=== PATIENT | male | born 1970 | race Caucasian/White ===

== ENCOUNTER 2020-08-10 09:13 | Day surgery (SDC) | payer OTHER, SELFPAY ==
[2020-08-04 15:44] VITALS: BMI 42.3
--- NOTE | 2020-08-09 12:19 | P.CONAN_ITS ---
Documented by User: Megha Avery 08/09/20 12:20 HPI - Anesthesia Eval Consult details Narrative: 49yo M for Colonoscopy [facility] Past Medical History Medical History Degenerative arthritis Elevated cholesterol Heartburn History of general anesthesia HTN (hypertension) Obesity Surgical History Surgical History History of hip surgery Social History Social History Alcohol intake: current Alcohol intake frequency: a few times a month Alcohol type: beer Smoking Status: Never smoker Use of substances other than those prescribed or required for medical reasons: No Advance Directives: No Advance Directives Information Provided: No Advance Directives on File: No Meds Allergies Allergy/AdvReac Type Severity Reaction Status Date / Time No Known Allergies Allergy Verified 08/04/20 15:43 Home Medications Medication Instructions Recorded Confirmed Type metoprolol succinate 50 mg PO BID 08/04/20 08/10/20 History simvastatin 40 mg PO BEDTIME 08/04/20 08/04/20 History Exam Exam Date and Time: August 09, 2020 1219 Height,Weight and Vital Signs: Height 5 ft 10 in Weight 133.81 kg Assessment and Plan Assessment Anesthesia Assessment: Chart Reviewed Documented by User: Jocelyn Pitt 08/10/20 09:39 [facility] Past Medical History Medical History Degenerative arthritis Elevated cholesterol Heartburn History of general anesthesia HTN (hypertension) Obesity Surgical History Surgical History History of hip surgery Social History Social History Alcohol intake: current Alcohol intake frequency: a few times a month Alcohol type: beer Smoking Status: Never smoker Use of substances other than those prescribed or required for medical reasons: No Advance Directives: No Advance Directives Information Provided: No Advance Directives on File: No Meds Allergies Allergy/AdvReac Type Severity Reaction Status Date / Time No Known Allergies Allergy Verified 08/04/20 15:43 Home Medications Medication Instructions Recorded Confirmed Type metoprolol succinate 50 mg PO BID 08/04/20 08/10/20 History simvastatin 40 mg PO BEDTIME 08/04/20 08/04/20 History Exam Airway Mallampati Class: III TM Dist: >3cm Neck ROM: Full
[2020-08-10 09:36] VITALS: BP 150/88; PULSE 58; RESP 16; TEMP 36.9; O2SAT 97
[2020-08-10] MEDS: Lactated Ringers 1,000 ML 100 ML IVCONT (09:47)
--- NOTE | 2020-08-10 10:11 | MHC.SHP ---
Pre-Procedural Eval Section A The patient is an INPATIENT: No Changes since office visit: No Cold of Flu in the past 2 weeks, No New Medical Problems, No Changes in Medication and No Patient answered all questions The History & Physical has been completed within 30 days and I have reviewed it.: Yes Section B Chief Complaint: screening Allergies: Allergies Allergy/AdvReac Type Severity Reaction Status Date / Time No Known Allergies Allergy Verified 08/04/20 15:43 Plan I have reviewed the history and physical and performed a pertinent physical examination on my patient. No changes have occurred unless specified.
[2020-08-10 10:40] VITALS: BP 111/63; PULSE 58; RESP 16; TEMP 36.3; O2SAT 97
--- NOTE | 2020-08-10 10:42 | PM.OP ---
Brief Operative Note Date of Service: 08/10/20 Pre-op diagnosis: screening Post-op diagnosis: same (diverticulosis) Procedure: colonoscopy Surgeon: Garland Ruvalcaba Anesthesia: MAC Estimated blood loss (mL): 0 Pathology: none sent Condition: stable Disposition: PACU
[2020-08-10 10:55] VITALS: BP 112/65; PULSE 68; RESP 17; TEMP 36.2; O2SAT 96
--- NOTE | 2020-08-10 11:13 | OP_ITS ---
SURGEON: Garland Ruvalcaba MD PREOPERATIVE DIAGNOSIS: POSTOPERATIVE DIAGNOSIS: PROCEDURE PERFORMED: Colonoscopy to the terminal ileum. ESTIMATED BLOOD LOSS: COMPLICATIONS: ANESTHESIA: ASSISTANTS: SPECIMENS: INDICATION: Colon cancer screening. MEDICATIONS: Monitored anesthesia care. DESCRIPTION OF PROCEDURE: History and physical was performed. The risks and benefits of the procedure were explained to the patient. Informed consent was obtained. The patient was placed in the left lateral decubitus position. A digital rectal exam was performed and was found to be normal. The Olympus pediatric video colonoscope was introduced into the rectum and advanced to the cecum without difficulty. The cecum was identified by transillumination, palpation, and identification of ileocecal valve. Examination was performed. The scope was removed. He tolerated the procedure well and was returned to recovery area in stable condition. FINDINGS: The terminal ileum was normal. The visualized colonic mucosa was within normal limits without evidence of masses or ulcers. No polyps were identified. The quality of prep was good. There was mild to moderate sigmoid diverticulosis. Retroflexed examination was remarkable for small internal hemorrhoids. IMPRESSION: 1. Normal colonoscopy. 2. Diverticulosis. RECOMMENDATION: 1. Follow up as needed. 2. Repeat colonoscopy is recommended in 10 years for average risk individuals. MD LOGAN Childers/ERASMO / [phone]
== END 2020-08-10 11:05 | disposition home or self-care (01) ==
PROVIDERS: PCP Internal Medicine Medical Oncology; Visit Provider Internal Medicine Gastroenterology
PROC: 0DJD8ZZ Inspection of Lower Intestinal Tract, Via Natural or Artificial Opening Endoscopic (ICD-10-PCS; CPT 45378; principal; 2020-08-10 10:20)
DX: Z12.11 Encounter for screening for malignant neoplasm of colon (principal); K57.30 Diverticulosis of large intestine without perforation or abscess without bleeding; K64.8 Other hemorrhoids; I10 Essential (primary) hypertension; Z79.899 Other long term (current) drug therapy
CPT/HCPCS: 45378

== ENCOUNTER 2021-06-30 09:14 | Outpatient (REF) | payer OTHER, SELFPAY ==
[2021-06-30 09:31] LABS: MANUAL DIFF FLAG NO
[2021-06-30 10:22] LABS: Basophils Percent Auto 0.6 % (0-2); Eosinophils Absolute Auto 0.1 X10*3/uL (0.0-0.4); Eosinophils Percent Auto 2.3 % (0-4); Hematocrit 45.8 % (42.0-52.0); Hemoglobin 15.2 g/dl (14.0-18.0); Lymphocytes Absolute Auto 1.9 X10*3/uL (1.2-4.9); Lymphocytes Percent Auto 40.8 % (20-40); Mean Corpuscular HGB Conc 33.2 g/dl (31.0-36.0); Mean Corpuscular Hemoglobin 30.4 pg (27.0-33.0); Mean Corpuscular Volume 91.6 fL (80.0-98.0); Monocytes Absolute Auto 0.5 X10*3/uL (0.1-1.2); Monocytes Percent Auto 10.3 % (2-11); Neutrophils Absolute Auto 2.2 x10*3/uL (2.0-8.3); Platelet Count 234 X10*3/uL (160-400); Red Cell Distribution Width 12.2 % (11.0-16.0); White Blood Count 4.8 X10*3/uL (4.8-10.8)
[2021-06-30 10:50] LABS: Alanine Aminotransferase 27 U/L (0-40); Albumin Level 4.3 g/dL (3.5-5.0); Alkaline Phosphatase 61 U/L (39-117); Anion Gap 13 (12-20); Aspartate Amino Transferase 16 U/L (5-37); Bilirubin Total 0.6 mg/dL (0.0-1.0); Blood Urea Nitrogen 13 mg/dL (9-16); Calcium 9.3 mg/dL (8.4-10.2); Carbon Dioxide 24 mmol/L (22-29); Chloride 105 mmol/L (96-108); Cholesterol 223 mg/dL; Estimated Glomerular Filt Rate > 60; Glucose Fasting 120 mg/dL (60-99); HDL Cholesterol 36 mg/dL; LDL Cholesterol Calculated 141 mg/dl; Potassium 4.2 mmol/L (3.3-5.1); Sodium 138 mmol/L (135-145); Total Protein 7.3 g/dL (6.5-8.0); Triglycerides 231 mg/dL
[2021-06-30 11:13] LABS: Prostate Specific Antigen 0.31 ng/mL (<0.05-4.0)
== END 2021-06-30 09:15 | disposition home or self-care (01) ==
LOC: HO.LAB 09:14
PROVIDERS: PCP Internal Medicine Medical Oncology; Visit Provider Internal Medicine Medical Oncology
DX: Z12.5 Encounter for screening for malignant neoplasm of prostate (principal); E78.5 Hyperlipidemia, unspecified; E66.01 Morbid (severe) obesity due to excess calories
CPT/HCPCS: 36415; 80053; 80061; 84153; 85025

== ENCOUNTER 2022-09-20 08:50 | Outpatient (REF) | payer OTHER, SELFPAY ==
[2022-09-20 11:01] LABS: MANUAL DIFF FLAG NO
[2022-09-20 11:19] LABS: Basophils Percent Auto 0.4 % (0-2); Eosinophils Absolute Auto 0.1 X10*3/uL (0.0-0.4); Eosinophils Percent Auto 2.4 % (0-4); Hematocrit 46.3 % (42.0-52.0); Imm Gran Abs Auto 0.01 X10*3/uL (0.00-0.03); Imm Gran Pct Auto 0.2 % (0.0-0.4); Lymphocytes Absolute Auto 2.1 X10*3/uL (1.2-4.9); Lymphocytes Percent Auto 41.8 % (20-40); Mean Corpuscular HGB Conc 32.4 g/dl (31.0-36.0); Mean Corpuscular Hemoglobin 30.4 pg (27.0-33.0); Mean Corpuscular Volume 93.7 fL (80.0-98.0); Mean Platelet Volume 10.7 fL (9.4-12.4); Monocytes Absolute Auto 0.5 X10*3/uL (0.1-1.2); Monocytes Percent Auto 10.2 % (2-11); Neutrophils Absolute Auto 2.3 x10*3/uL (2.0-8.3); Platelet Count 214 X10*3/uL (160-400); Red Blood Count 4.94 X10*6/uL (4.60-5.80); Red Cell Distribution Width 12.6 % (11.0-16.0)
[2022-09-20 11:38] LABS: Alanine Aminotransferase 27 U/L (0-40); Albumin Level 4.1 g/dL (3.5-5.0); Alkaline Phosphatase 58 U/L (39-117); Anion Gap 12 (12-20); Aspartate Amino Transferase 18 U/L (5-37); Bilirubin Total 0.6 mg/dL (0.0-1.0); Blood Urea Nitrogen 10 mg/dL (9-16); Calcium 9.2 mg/dL (8.4-10.2); Carbon Dioxide 28 mmol/L (22-29); Chloride 107 mmol/L (96-108); Cholesterol 213 mg/dL; Estimated Glomerular Filt Rate > 60; Glucose Fasting 111 mg/dL (60-99); HDL Cholesterol 39 mg/dL; LDL Cholesterol Calculated 139 mg/dl; Sodium 142 mmol/L (135-145); Total Protein 6.8 g/dL (6.5-8.0); Triglycerides 178 mg/dL
[2022-09-20 12:12] LABS: Prostate Specific Antigen 0.34 ng/mL (<0.05-4.0); Vitamin D 25-OH Total 20.8 ng/mL (>30)
== END 2022-09-20 08:51 | disposition home or self-care (01) ==
LOC: HO.10HDL 08:50
PROVIDERS: Visit Provider Internal Medicine Medical Oncology
DX: Z12.5 Encounter for screening for malignant neoplasm of prostate (principal); E78.5 Hyperlipidemia, unspecified; E66.01 Morbid (severe) obesity due to excess calories; N40.0 Benign prostatic hyperplasia without lower urinary tract symptoms; M85.80 Other specified disorders of bone density and structure, unspecified site
CPT/HCPCS: 36415; 80053; 80061; 82306; 84153; 85025

== ENCOUNTER 2023-01-16 12:11 | Emergency (ER) | payer OTHER, SELFPAY ==
--- NOTE | ~2023-01-16 | XR_ITS ---
EXAMINATION: XR HAND, LEFT CLINICAL INFORMATION: trauma COMPARISON: None available. TECHNIQUE: PA, lateral, and oblique views of the left hand. FINDINGS: The bones and soft tissues are normal. No fracture. Alignment is anatomic. Joint spaces are maintained. No erosions or soft tissue calcifications. XR/XR hand LT min 3V IMPRESSION: Normal left hand.
--- NOTE | ~2023-01-16 | XR_ITS ---
EXAMINATION: XR RIBS, RIGHT CLINICAL INFORMATION: Trauma COMPARISON: CTA of the chest 2014 TECHNIQUE: 3 views of the right ribs and one view of the chest were obtained. FINDINGS: Lungs are clear. No consolidation, pneumothorax, or pleural effusion. The cardiomediastinal silhouette and pulmonary vasculature are normal. Degenerative changes of the spine. Question old fracture of the right anterior 10th rib. No acute fracture. XR/XR ribs RT min 3V w CXR1V IMPRESSION: No evidence for acute disease in the chest. No acute rib fracture.
[2023-01-16 12:12] VITALS: BP 199/89; PULSE 92; RESP 18; TEMP 35.8; O2SAT 97; BMI 42.3
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
[2023-01-16 12:57] VITALS: BP 157/89
== END 2023-01-16 14:16 | disposition home or self-care (01) ==
PROVIDERS: Emergency Provider Emergency Medicine; PCP Internal Medicine Medical Oncology
DX: S69.92XA Unspecified injury of left wrist, hand and finger(s), initial encounter (principal); R10.11 Right upper quadrant pain; R07.89 Other chest pain; M79.642 Pain in left hand; X58.XXXA Exposure to other specified factors, initial encounter; Y93.9 Activity, unspecified; Y92.9 Unspecified place or not applicable; Y99.0 Civilian activity done for income or pay; Z79.899 Other long term (current) drug therapy
CPT/HCPCS: 71101; 73130; 99283; 99284

== ENCOUNTER → 2023-01-17 10:01 | Outpatient (BNVA) | payer OTHER, SELFPAY | PROVIDERS: PCP Internal Medicine Medical Oncology; Visit Provider Physician Assistant | DX: S46.911A Strain of unspecified muscle, fascia and tendon at shoulder and upper arm level, right arm, initial encounter (principal); X50.1XXA Overexertion from prolonged static or awkward postures, initial encounter; R20.2 Paresthesia of skin | CPT/HCPCS: 99213 ==

== ENCOUNTER → 2023-01-24 11:06 | Outpatient (BNVA) | payer OTHER, SELFPAY | PROVIDERS: PCP Internal Medicine Medical Oncology; Visit Provider Physician Assistant | DX: S46.911A Strain of unspecified muscle, fascia and tendon at shoulder and upper arm level, right arm, initial encounter (principal); X50.1XXA Overexertion from prolonged static or awkward postures, initial encounter; R20.2 Paresthesia of skin | CPT/HCPCS: 99213 ==

== ENCOUNTER 2024-04-14 10:21 | Outpatient (AMB) | payer OTHER, SELFPAY ==
[2024-04-14 10:22] VITALS: BP 152/78; PULSE 63; O2SAT 98; BMI 44.8
--- NOTE | 2024-04-14 10:22 | MHC.OFFVIS ---
Vital Signs 04/14/24 10:22 Height 5 ft 10 in Weight 311 lb 15.265 oz BMI 44.8 BP 152/78 H Blood Pressure Location Rt brachial Position Sitting Pulse 63 Pulse Source Pulse Oximeter Pulse Oximetry (%) 98 Oxygen Delivery Method Room Air Intake Visit Reasons: sleep apnea Allergies No Known Allergies Allergy (Verified 04/14/24 10:25) HPI HPI sleep apnea: Details: Phong is a pleasant 53 year old male, never smoker, with underlying HTN and HLD. He was referred by PCP for pulmonary evaluation for possible KOBE. He reports loud snoring, witnessed apneas, significant daytime fatigue, and nonrestorative sleep. He denies prior sleep study and is interested in having this performed. He denies any h/o asthma. He reports with mother, smoker, with COPD. He denies any occupational exposures. [facility] Medical History Degenerative arthritis Elevated cholesterol Heartburn History of general anesthesia HTN (hypertension) Obesity Surgical History History of hip surgery Social History (Updated 04/14/24 @ 10:25 by Jeannine Resendez [facility]) Alcohol intake: current Alcohol intake frequency: a few times a month Alcohol type: beer Patient Tobacco Use Status: Never used Tobacco Review of Systems Const Denies chills, Denies excessive sweating, Denies fever(s), Denies headache(s) and Denies night sweats Eyes Denies dry eyes, Denies irritation and Denies itchy eyes ENT Reports Normal hearing present, Denies headache(s), Denies nasal congestion, Denies nasal discharge, Denies post nasal drip and Denies sore throat Card Denies chest pain, Denies chest pain at rest, Denies chest pain with activity, Denies claudication, Denies leg edema, Reports dyspnea, Denies dyspnea on exertion, Denies orthopnea and Reports paroxysmal nocturnal dyspnea Resp Denies chest congestion, Denies cough, Denies excessive phlegm production, Denies pain on inspiration, Denies pain with cough, Reports dyspnea, Denies dyspnea on exertion, Denies stridor and Denies wheezing Musc Denies myalgias Neuro Reports Normal hearing present and Denies headache(s) Endo Denies excessive sweating Shamir/Lymph Denies lymphadenopathy Aller/Immun Denies itchy eyes, Denies seasonal rhinorrhea and Denies wheezing Physical Exam Vital Signs: Last Vital Signs Pulse 63 04/14/24 10:22 BP 152/78 H 04/14/24 10:22 Pulse Ox 98 04/14/24 10:22 Oxygen Delivery Method Room Air 04/14/24 10:22 BMI result Body Mass Index 44.8 Const General: cooperative, healthy appearing, comfortable, no acute distress, well developed and alert Nutritional Appearance: obese Orientation/consciousness: patient oriented x3 Limitations: no limitations HEENT Head: Yes normal to inspection, Yes normocephalic and Yes atraumatic Ears: hearing grossly normal bilaterally and external ears normal Eyes General: appearance normal, both eyes and all related structures Eyelids: Yes eyelids normal Sclerae: sclerae normal EOM: EOMs intact bilaterally Neck Neck: Yes normal visual inspection and Yes no lymphadenopathy Lymphatic: no lymphadenopathy noted Chest Chest palpation & inspection: normal inspection of the chest Resp Effort & Inspection: normal respiratory effort, able to speak in complete sentences, no audible wheezes, no cough, no stridor, not tachypneic, no tripod positioning and no use of accessory muscles Auscultation: clear to auscultation bilaterally Cardio Jugular venous distension: no JVD Rate: regular rate Rhythm: regular rhythm Skin Other: warm, dry General skin exam: no rashes or lesions noted Neuro General: patient oriented x3 Cranial nerves: Yes Normal hearing present Cognition (Neuro): normal cognition Gait exam (Neuro): Normal gait present Extrem General: Yes normal to inspection, Yes capillary refill normal, Yes no clubbing, cyanosis or edema and Yes no pedal edema Psych Appearance: grossly normal and well kempt Speech and movement: Normal speech and movement present and Clear speech present Affect: normal affect Attitude: cooperative Thought process: Normal thought process present Thought content: Normal thought content present Insight: Good insight present (Psych) Judgement: Good judgement present (Psych) Assessment & Plan Assessment & Plan (1) Paroxysmal nocturnal dyspnea: Code(s): R06.00 - Dyspnea, unspecified Category: Medical (2) Witnessed episode of apnea: Code(s): R06.81 - Apnea, not elsewhere classified Category: Medical Plan Phong presents with symptoms suggestive of KOBE. Will send for home sleep study. All questions were answered and patient is in agreement of plan. Will follow up to review results. Orders: Orders RT home sleep study Today R06.00 - Dyspnea, unspecified, R06.81 - Apnea, not elsewhere classified Coding Level of Care Code New Pt Level 3 (19550) Diagnoses Paroxysmal nocturnal dyspnea R06.00 Witnessed episode of apnea R06.81
== END 2024-04-14 11:32 | disposition home or self-care (01) ==
PROVIDERS: PCP Internal Medicine Medical Oncology; Visit Provider Nurse Practitioner Family
DX: R06.00 Dyspnea, unspecified (principal); R06.81 Apnea, not elsewhere classified
CPT/HCPCS: 99203

== ENCOUNTER → 2024-04-14 10:21 | Outpatient (BNVA) | payer OTHER, SELFPAY | PROVIDERS: PCP Internal Medicine Medical Oncology; Visit Provider Nurse Practitioner Family ==

== ENCOUNTER 2024-04-25 08:18 | Outpatient (REF) | payer OTHER, SELFPAY ==
[2024-04-25 08:31] LABS: MANUAL DIFF FLAG NO
[2024-04-25 09:04] LABS: Basophils Percent Auto 0.4 % (0-2); Eosinophils Absolute Auto 0.1 X10*3/uL (0.0-0.4); Eosinophils Percent Auto 2.9 % (0-4); Hematocrit 43.6 % (42.0-52.0); Hemoglobin 14.6 g/dl (14.0-18.0); Imm Gran Abs Auto 0.01 X10*3/uL (0.00-0.03); Imm Gran Pct Auto 0.2 % (0.0-0.4); Lymphocytes Absolute Auto 1.6 X10*3/uL (1.2-4.9); Lymphocytes Percent Auto 32.6 % (20-40); Mean Corpuscular HGB Conc 33.5 g/dl (31.0-36.0); Mean Corpuscular Hemoglobin 30.8 pg (27.0-33.0); Mean Platelet Volume 9.9 fL (9.4-12.4); Monocytes Absolute Auto 0.4 X10*3/uL (0.1-1.2); Neutrophils Absolute Auto 2.7 x10*3/uL (2.0-8.3); Neutrophils Percent Auto 55.9 % (45-73); Platelet Count 193 X10*3/uL (160-400); Red Blood Count 4.74 X10*6/uL (4.60-5.80); Red Cell Distribution Width 12.6 % (11.0-16.0); White Blood Count 4.9 X10*3/uL (4.8-10.8)
[2024-04-25 09:33] LABS: Alanine Aminotransferase 27 U/L (0-40); Albumin Level 4.2 g/dL (3.5-5.0); Alkaline Phosphatase 61 U/L (39-117); Anion Gap 11 (12-20); Aspartate Amino Transferase 14 U/L (5-37); Bilirubin Total 0.4 mg/dL (0.0-1.0); Blood Urea Nitrogen 10 mg/dL (9-16); Calcium 9.5 mg/dL (8.4-10.2); Carbon Dioxide 29 mmol/L (22-29); Chloride 105 mmol/L (96-108); Cholesterol 214 mg/dL (<200); Estimated Glomerular Filt Rate > 60; Glucose Fasting 129 mg/dL (60-99); HDL Cholesterol 44 mg/dL (>40); LDL Cholesterol Calculated 132 mg/dL (<100); Potassium 4.3 mmol/L (3.3-5.1); Sodium 141 mmol/L (135-145); Total Protein 7.4 g/dL (6.5-8.0); Triglycerides 190 mg/dL (<150)
[2024-04-30 07:08] LABS: Testosterone, Total 330 ng/dL (250-1100)
== END 2024-04-25 08:19 | disposition home or self-care (01) ==
LOC: HO.LAB 08:18
PROVIDERS: PCP Internal Medicine Medical Oncology; Visit Provider Internal Medicine Medical Oncology
DX: E66.01 Morbid (severe) obesity due to excess calories (principal); I10 Essential (primary) hypertension; E11.9 Type 2 diabetes mellitus without complications; E29.1 Testicular hypofunction
CPT/HCPCS: 36415; 80053; 80061; 84403; 85025

== ENCOUNTER → 2024-05-21 08:50 | Outpatient (REF) | payer OTHER, SELFPAY | LOC: HO.SL 08:50 | PROVIDERS: PCP Internal Medicine Medical Oncology; Visit Provider Nurse Practitioner Family | DX: G47.33 Obstructive sleep apnea (adult) (pediatric) (principal); R06.00 Dyspnea, unspecified | CPT/HCPCS: 95806 ==

== ENCOUNTER → 2024-05-21 09:07 | Outpatient (BNV) | payer OTHER, SELFPAY | PROVIDERS: PCP Internal Medicine Medical Oncology; Visit Provider Internal Medicine | DX: G47.33 Obstructive sleep apnea (adult) (pediatric) (principal) | CPT/HCPCS: 95806 ==

== ENCOUNTER 2024-06-16 15:00 | Outpatient (AMB) | payer OTHER, SELFPAY ==
--- NOTE | 2024-06-16 13:17 | A.OFFVIS_ITS ---
Vital Signs 06/16/24 15:04 Height 5 ft 10 in Weight 315 lb 4.176 oz BMI 45.2 BP 158/80 H Blood Pressure Location Lt brachial Position Sitting Pulse 87 Pulse Source Pulse Oximeter Pulse Oximetry (%) 97 Oxygen Delivery Method Room Air Intake Visit Reasons: sleep apnea\ Sleep study follow up Allergies No Known Allergies Allergy (Verified 06/16/24 15:06) HPI HPI sleep apnea\ Sleep study follow up: Details: Phong is a pleasant 53 year old male, never smoker, with underlying HTN and HLD. He was referred by PCP for pulmonary evaluation for possible KOBE. He reports loud snoring, witnessed apneas, significant daytime fatigue, and nonrestorative sleep. Today he presents to review home sleep study results. He currently denies any respiratory symptoms however did have pneumonia a few weeks prior treated with zpak, with resolving symptoms. [facility] Medical History Degenerative arthritis Elevated cholesterol Heartburn History of general anesthesia HTN (hypertension) Obesity Surgical History History of hip surgery Social History Alcohol intake: current Alcohol intake frequency: a few times a month Alcohol type: beer Patient Tobacco Use Status: Never used Tobacco Review of Systems Const Denies chills, Denies excessive sweating, Denies fever(s), Denies headache(s) and Denies night sweats Eyes Denies dry eyes, Denies irritation and Denies itchy eyes ENT Reports Normal hearing present, Denies headache(s), Denies nasal congestion, Denies nasal discharge, Denies post nasal drip and Denies sore throat Card Denies chest pain, Denies chest pain at rest, Denies chest pain with activity, Denies claudication, Denies leg edema, Reports dyspnea, Denies dyspnea on exertion, Denies orthopnea and Reports paroxysmal nocturnal dyspnea Resp Denies chest congestion, Denies excessive phlegm production, Denies pain on inspiration, Denies pain with cough, Reports dyspnea, Denies dyspnea on exertion, Denies stridor and Denies wheezing Musc Denies myalgias Neuro Reports Normal hearing present and Denies headache(s) Endo Denies excessive sweating Shamir/Lymph Denies lymphadenopathy Aller/Immun Denies itchy eyes, Denies seasonal rhinorrhea and Denies wheezing Physical Exam Vital Signs: Last Vital Signs Pulse 87 06/16/24 15:04 BP 158/80 H 06/16/24 15:04 Pulse Ox 97 06/16/24 15:04 Oxygen Delivery Method Room Air 06/16/24 15:04 BMI result Body Mass Index 45.2 Const General: cooperative, healthy appearing, comfortable, no acute distress, well developed and alert Nutritional Appearance: obese Orientation/consciousness: patient oriented x3 Limitations: no limitations HEENT Head: Yes normal to inspection, Yes normocephalic and Yes atraumatic Ears: hearing grossly normal bilaterally and external ears normal Eyes General: appearance normal, both eyes and all related structures Eyelids: Yes eyelids normal Sclerae: sclerae normal EOM: EOMs intact bilaterally Neck Neck: Yes normal visual inspection and Yes no lymphadenopathy Lymphatic: no lymphadenopathy noted Chest Chest palpation & inspection: normal inspection of the chest Resp Effort & Inspection: normal respiratory effort, able to speak in complete sentences, no audible wheezes, no cough, no stridor, not tachypneic, no tripod positioning and no use of accessory muscles Auscultation: clear to auscultation bilaterally Cardio Jugular venous distension: no JVD Rate: regular rate Rhythm: regular rhythm Skin Other: warm, dry General skin exam: no rashes or lesions noted Neuro General: patient oriented x3 Cranial nerves: Yes Normal hearing present Cognition (Neuro): normal cognition Gait exam (Neuro): Normal gait present Extrem General: Yes normal to inspection, Yes capillary refill normal, Yes no clubbing, cyanosis or edema and Yes no pedal edema Psych Appearance: grossly normal and well kempt Speech and movement: Normal speech and movement present and Clear speech present Affect: normal affect Attitude: cooperative Thought process: Normal thought process present Thought content: Normal thought content present Insight: Good insight present (Psych) Judgement: Good judgement present (Psych) Assessment & Plan Assessment & Plan (1) Severe obstructive sleep apnea: Code(s): G47.33 - Obstructive sleep apnea (adult) (pediatric) Category: Medical (2) Nocturnal hypoxemia: Code(s): G47.34 - Idiopathic sleep related nonobstructive alveolar hypoventilation Category: Medical Plan Reviewed home sleep study results which revealed severe KOBE, AHI 67 with significant nocturnal hypoxemia, lowest 63%, average 89% and <88% for 140 minutes. Given severity will send for in lab titration study to ensure optimal pressures. All questions were answered and patient is in agreement of plan. Will follow up to review results. Orders: Orders RT PSG in-lab sleep titration Today G47.33 - Obstructive sleep apnea (adult) (pediatric), G47.34 - Idiopathic sleep related nonobstructive alveolar hypoventilation Coding Level of Care Code Est Pt Level 3 (50057) Diagnoses Severe obstructive sleep apnea G47.33 Nocturnal hypoxemia G47.34
[2024-06-16 15:04] VITALS: BP 158/80; PULSE 87; O2SAT 97; BMI 45.2
== END 2024-06-16 15:35 | disposition home or self-care (01) ==
PROVIDERS: PCP Internal Medicine Medical Oncology; Visit Provider Nurse Practitioner Family
DX: G47.33 Obstructive sleep apnea (adult) (pediatric) (principal); G47.34 Idiopathic sleep related nonobstructive alveolar hypoventilation
CPT/HCPCS: 99213

== ENCOUNTER → 2024-06-16 15:00 | Outpatient (BNVA) | payer OTHER, SELFPAY | PROVIDERS: PCP Internal Medicine Medical Oncology; Visit Provider Nurse Practitioner Family ==

== ENCOUNTER → 2024-08-18 20:30 | Outpatient (REF) | payer OTHER, SELFPAY | LOC: HO.SL 20:30 | PROVIDERS: PCP Internal Medicine Medical Oncology; Visit Provider Nurse Practitioner Family | DX: G47.34 Idiopathic sleep related nonobstructive alveolar hypoventilation (principal); G47.33 Obstructive sleep apnea (adult) (pediatric) | CPT/HCPCS: 95811 ==

== ENCOUNTER → 2024-08-18 22:51 | Outpatient (BNV) | payer OTHER, SELFPAY | PROVIDERS: PCP Internal Medicine Medical Oncology; Visit Provider Psychiatry & Neurology Neurology | DX: G47.33 Obstructive sleep apnea (adult) (pediatric) (principal) | CPT/HCPCS: 95811 ==

== ENCOUNTER 2024-09-22 15:24 | Outpatient (AMB) | payer OTHER, SELFPAY ==
--- NOTE | 2024-09-21 20:05 | A.OFFVIS_ITS ---
Vital Signs 09/22/24 15:32 Height 5 ft 10 in Weight 310 lb 13.628 oz BMI 44.6 Intake Visit Reasons: sleep apnea\ Sleep study follow up Student Development Advisor Required: No Hydraulic Chair Assembler: Hydraulic Chair Assembler offered & declined Accompanied by: Self / Same As Patient Allergies No Known Allergies Allergy (Verified 09/22/24 15:35) Medication List - Last Reconciled 09/22/24 by Darcie Parr LPN metoprolol succinate ER 50 mg PO BID simvastatin 40 mg PO BEDTIME HPI HPI sleep apnea\ Sleep study follow up: Details: Phong is a pleasant 53 year old male, never smoker, with underlying HTN and HLD. He was referred by PCP for pulmonary evaluation for possible KOBE, reporting loud snoring, witnessed apneas, significant daytime fatigue, and nonrestorative sleep. Prior home sleep study revealed severe KOBE, AHI 67 with significant nocturnal hypoxemia, lowest 63%, average 89% and <88% for 140 minutes. Today he presents to review in lab titration study. He denies any visits to urgent care or hospitalizations related to respiratory distress since the last visit. [facility] Medical History Degenerative arthritis Elevated cholesterol Heartburn History of general anesthesia HTN (hypertension) Obesity Surgical History History of hip surgery Social History Alcohol intake: current Alcohol intake frequency: a few times a month Alcohol type: beer Patient Tobacco Use Status: Never used Tobacco Review of Systems Const Denies chills, Denies excessive sweating, Denies fever(s), Denies headache(s) and Denies night sweats Eyes Denies dry eyes, Denies irritation and Denies itchy eyes ENT Reports Normal hearing present, Denies headache(s), Denies nasal congestion, Denies nasal discharge, Denies post nasal drip and Denies sore throat Card Denies chest pain, Denies chest pain at rest, Denies chest pain with activity, Denies claudication, Denies leg edema, Reports dyspnea, Denies dyspnea on exertion, Denies orthopnea and Reports paroxysmal nocturnal dyspnea Resp Denies excessive phlegm production, Denies pain on inspiration, Denies pain with cough, Reports dyspnea, Denies dyspnea on exertion, Denies stridor and Denies wheezing Musc Denies myalgias Neuro Reports Normal hearing present and Denies headache(s) Endo Denies excessive sweating Shamir/Lymph Denies lymphadenopathy Aller/Immun Denies itchy eyes, Denies seasonal rhinorrhea and Denies wheezing Physical Exam Const General: cooperative, healthy appearing, comfortable, no acute distress, well developed and alert Nutritional Appearance: obese Orientation/consciousness: patient oriented x3 Limitations: no limitations HEENT Head: Yes normal to inspection, Yes normocephalic and Yes atraumatic Ears: hearing grossly normal bilaterally and external ears normal Eyes General: appearance normal, both eyes and all related structures Eyelids: Yes eyelids normal Sclerae: sclerae normal EOM: EOMs intact bilaterally Neck Neck: Yes normal visual inspection and Yes no lymphadenopathy Lymphatic: no lymphadenopathy noted Chest Chest palpation & inspection: normal inspection of the chest Resp Effort & Inspection: normal respiratory effort, able to speak in complete sentences, no audible wheezes, no cough, no stridor, not tachypneic, no tripod positioning and no use of accessory muscles Auscultation: clear to auscultation bilaterally Cardio Jugular venous distension: no JVD Rate: regular rate Rhythm: regular rhythm Skin Other: warm, dry General skin exam: no rashes or lesions noted Neuro General: patient oriented x3 Cranial nerves: Yes Normal hearing present Cognition (Neuro): normal cognition Gait exam (Neuro): Normal gait present Extrem General: Yes normal to inspection, Yes capillary refill normal, Yes no clubbing, cyanosis or edema and Yes no pedal edema Psych Appearance: grossly normal and well kempt Speech and movement: Normal speech and movement present and Clear speech present Affect: normal affect Attitude: cooperative Thought process: Normal thought process present Thought content: Normal thought content present Insight: Good insight present (Psych) Judgement: Good judgement present (Psych) Assessment & Plan Assessment & Plan (1) Severe obstructive sleep apnea: Code(s): G47.33 - Obstructive sleep apnea (adult) (pediatric) Category: Medical (2) Nocturnal hypoxemia: Code(s): G47.34 - Idiopathic sleep related nonobstructive alveolar hypoventilation Category: Medical Plan Reviewed recommendations from in lab titration study, which noted there were no residual obstructive events and hypoxia was resolved using CPAP therapy. Since patient is quite symptomatic, will start CPAP therapy. Will send in prescription for CPAP mode and pressure settings of 15 cm with close monitoring for compliance and benefits. Sleep hygiene education reviewed. He is aware if there are any issues with the mask or CPAP machine, to call the DME company or call the office. Once established with CPAP therapy, will send for overnight oximetry to ensure resolution of nocturnal hypoxemia. All questions were answered and patient is in agreement of plan. Will follow up in 10-12 weeks. Coding Level of Care Code Est Pt Level 4 (53660) Diagnoses Severe obstructive sleep apnea G47.33 Nocturnal hypoxemia G47.34
[2024-09-22 15:32] VITALS: BMI 44.6
--- OUTSIDE RECORDS SUMMARY | 2024-09-22 17:40 | XMS_ITS ---
Author Organization Andrew Connelly III, MD Address [address] [place] [address] Care Team Providers Care Flute Polisher Name Role Phone Andrew Connelly Primary Care Provider Allergies Allergen (clinical drug ingredient) Drug/Non Drug Allergy documented on EMR Reaction Allergy Type Onset Date Status No Known Drug Allergy Unknown Drug Allergy Active REASON FOR VISIT Viral syndrome, Acute diarrhea, Fever, Nausea and vomiting Medications Medication SIG (Take, Route, Frequency, Duration) Notes Start Date End Date Status Simvastatin 40 MG Oral Ac tive Metoprolol Tartrate 50 mg TAKE 1 TABLET TWICE A DAY Active Zepbound 2.5 MG/0.5ML 0.5 mL Subcutaneou s 2.5mg once a week for 4 weeks 03/24/2024 Active Social History Tobacco Use: Social History Observation Description Date Details (start date - stop date) Never Smoker NA - NA Sex Assigned At : Social History Observation Description Sex Assigned At Male Tobacco Use/Smoking Question Answer Notes Patient is a nonsmoker Additional Findings: Tobacco Non-User Aggressive non-smoker Vital Signs Temperature 101.0 degrees Fahrenheit 025 Height 70 in 09/05/2024 Weight 315 lbs 09/05/2024 BMI 45.19 kg/m2 09/05/2024 Encounters Encounter Location Date Provider Diagnosis Andrew Connelly III, MD [address] [place] [address] [place] [address] 09/05/2024 Andrew Connelly Hyperlipidemia, unspecified hyperlipidemia type E78.5 ; Essential hypertension I10 ; History of umbilical hernia Z87.19 ; Morbid obesity E66.01 ; BPH (benign prostatic hyperplasia) N40.0 ; Type 2 diabetes mellitus without complication, without long-term current use of insulin E11.9 ; Sleep apnea, unspecified sleep apnea type G47.30 and Viral syndrome B34.9 Assessments Encounter Date Diagnosis (ICD Code) Assessment Notes T reatment Notes Treatment Clinical Notes 09/05/2024 Hyperlipidemia, unspecified hyperlipidemia type (ICD-10 - E78.5) He was instructed to resume his simvastatin to be taken with evening meal. 09/05/2024 Essential hypertension (ICD-10 - I10) His blood pressure today has beenstable at the upper limit of normal. I recommend aggressive weight reduction and aggressive sodium restriction. No change in his regimen was made.He was given an appointment to come to the office to measure his pressure in the near future. 09/05/2024 History of umbilical hernia (ICD-10 - Z87.19) The scar is well-healed in the hernia has been repaired. 09/05/2024 Morbid obesity (ICD-10 - E66.01) He has gained 7 pounds since his last visit. He has been unable to acquire a weight loss program. We discussed diet and nutrition today. Continue his efforts to achieve a GLP1 medication. 09/05/2024 BPH (benign prostatic hyperplasia) (ICD-10 - N40.0) He rises from sleep once or twice a night. We have discussed several modifications in his lifestyle we could make to reduce this. 09/05/2024 Type 2 diabetes mellitus without complication, without long-term current use of insulin (ICD-10 - E11.9) Comprehensive blood work with her hemoglobin A1c has been ordered. No change in his regimen was made today. 09/05/2024 Sleep apnea, unspecified sleep apnea type (ICD-10 - G47.30) He continues to use his CPAP machine with good effect. 09/05/2024 Viral syndrome (ICD-10 - B34.9) This is clearly a contagious viral illness. It has features of gastroenteritis. His nausea has resolved. I recommended that he use a cough suppressant with dextromethorphan as well as Imodium for the diarrhea. He will hydrate aggressively. He will report by telephone every 48 hours. Plan Of Treatment Medication Medication Name Sig Start Date Stop Date Notes Simvastatin 40 MG Oral Metoprolol Tartrate 50 mg TAKE 1 TABLET TWICE A DAY Zepbound 2.5 MG/0.5ML 0.5 mL Subcutaneou s 2.5mg once a week for 4 weeks 03/24/2024 Next Appt Details Follow Up: Sunday morning, Donya cota: To check on the patient's condition Provider Name:Andrew Connelly, 03/24/2025 02:00:00 PM, [address] [place] [address] [address], [address], [place], [address], Progress Notes * JOSE FRANCISCOJOHN WallaceDOB:1970 ( 53 yo M)Acc No.[id number]:09/05/2024 Patient:?JOHN KNIGHT Provider:?Andrew Connelly MD :1970???Age:53 Y???Sex:Male Luke e:09/05/2024 Address: [address], [place], [id number] Subjective: * Chief Complaints: * ???Viral syndromeAcute diarr heaFeverNausea and vomiting * HPI: ???:?Telehealth?Location of provider rendering services:?{...} [address] [facility] [address] ?Location of patient:?address listed in demographics for today's visit ?Patient identification confirmed using:?Name, ?Telehealth method:?Telephone only. Patient not visible to care provider. ?Consent:?Patient verbally consented to treatment, Patient verbally consented to billing insurance company, Patient informed of any privacy concerns related to method of visit ?Total time spent with patient (mins)?15 ?The patient, a 53-year-old male, reported feeling unwell a couple of nights ago. He experienced vomiting and severe diarrhea, which has persisted for the last two days. He has been trying to stay hydrated by drinking water and Gatorade, but he reports that he cannot retain anything and it passes through his system quickly. He has been able to eat a little, including soup, bananas, and crackers, but his appetite is significantly reduced. He also reported having a fever for a couple of days, which reached a high of 101 degrees Fahrenheit. The patient has not been vomiting recently, but his diarrhea continues. * ROS:?General/Constitutional:?pain?only normal aches and pains.?Chills?denies.?Fatigue?admits.?Admits?Fever,?denies.?ENT:?Decreased hearing?denies.?Respiratory:?Cough?non-productive.?Cardiovascular:?Chest pain with exertion?denies.?Dyspnea on exertion?denies.?Shortness of breath?denies.?Gastrointestinal:?Constipation?denies.?Decreased appetite?that is not associated with weight loss.?Diarrhea?that is frequent.?Heartburn?denies.?Nausea?frequent.?Rectal bleeding?denies.?Vomiting?denies.?Hematology:?bruising?denies.?petechiae?denies.?Swollen glands?none have been noted.?Genitourinary:?Frequent urination?once a night.?Musculoskeletal:?Muscle aches?denies.?Painful joints?denies.?Sciatica?denies.?Weakness?that is generalized.?Skin:?Itching?denies.?Rash?denies.?Skin lesion(s)?denies.?Neurologic:?Difficulty speaking?denies.?Dizziness?denies.?Headache?denies.?Low back pain?denies.?Psychiatric:?Depressed mood?denies.? * Medical History:? * Surgical History:?umbilical repair 2008aseptic necrosis of right and left hip 09/2000left hip replacement 07/10/2008right hip replacement 07/14/2008Colonoscopy, [facility], Dr. Ruvalcaba 07/2020No history * Hospitalization/Major Diagno stic Procedure:?multiple orthopedic procedures No history * Family History:?Father: dece ased 77 yrs, diagnosed with DM, HTN.?Mother: 71 yrs, breast cancer.?1 brother(s) , 1 sister(s) . 1 son(s) - healthy. .? His mother has heart disease and a history of bypass surgery. He also diaz has a history of prostate cancer. His mother has history of breast cancer. His brother has hypertension, hyperlipidemia. * Social History:?Tobacco Use:?Tobacco Use/Smoking?Patient is a?nonsmoker ?Additional Findings: Tobacco Non-User?Aggressive non-smoker ???He was born in [place]. 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 He is to for He has a son John. He works 60 hours a week. * Medications:?TakingZepbound 2.5 MG/0.5ML Solution Auto-injector 0.5 mL Subcutaneous 2.5mg once a week for 4 weeks Metoprolol Tartrate 50 mg Tablet TAKE 1 TABLET TWICE A DAY Simvastatin 40 MG Tablet Oral Medication List reviewed and reconciled with the patientTaking Zepbound 2.5 MG/0.5ML Solution Auto-injector 0.5 mL Subcutaneous 2.5mg once a week for 4 weeks Taking Metoprolol Tartrate 50 mg Tablet TAKE 1 TABLET TWICE A DAY Taking Simvastatin 40 MG Tablet Oral Medication List reviewed and reconciled with the patient * Allergies:?No Known Drug All ergyno[Allergies Verified] Objective: * Vitals:?Ht: 70, Wt: 315, BMI :45.19, Temp:101.0, Wt-k.88. Assessment: * Assessment: 1.?Hyperlipidemia, unspecifi ed hyperlipidemia type - E78.5 (Primary)???Notes :He was instructed to resume his simvastatin to be taken with evening meal.???2.?Essential hypertension - I10???Notes :His blood pressure today has beenstable at the upper limit of normal. I recommend aggressive weight reduction and aggressive sodium restriction. No change in his regimen was made.He was given an appointment to come to the office to measure his pressure in the near future.???3.?History of umbilical hernia - Z87.19???Notes :The scar is well-healed in the hernia has been repaired.???4.?Morbid obesity - E66.01???Notes :He has gained 7 pounds since his last visit. He has been unable to acquire a weight loss program. We discussed diet and nutrition today. Continue his efforts to achieve a GLP1 medication.???5.?BPH (benign prostatic hyperplasia) - N40.0???Notes :He rises from sleep once or twice a night. We have discussed several modifications in his lifestyle we could make to reduce this.???6.?Type 2 diabetes mellitus without complication, without long-term current use of insulin - E11.9???Notes :Comprehensive blood work with her hemoglobin A1c has been ordered.? No change in his regimen was made today.???7.?Sleep apnea, unspecified sleep apnea type - G47.30???Notes :He continues to use his CPAP machine with good effect.???8.?Viral syndrome - B34.9???Notes :This is clearly a contagious viral illness.? It has features of gastroenteritis.? His nausea has resolved.? I recommended that he use a cough suppressant with dextromethorphan as well as Imodium for the diarrhea.? He will hydrate aggressively.? He will report by telephone every 48 hours.??? Plan: * Treatment: 2.?Others? Continue Zepbound Solution Auto-injector, 2.5 MG/0.5ML, 0.5 mL, Subcutaneous, 2.5mg once a week for 4 weeks;?Continue Metoprolol Tartrate Tablet, 50 mg, TAKE 1 TABLET TWICE A DAY.?? * Procedure Codes:? * Preventive Medicine:? ??Counseling:?Care goal follow-up plan:?Counseling for abnormal BMI given?Yes ?Above Normal BMI Follow-up?Dietary management education, guidance, and counseling, Dietary needs education, Exercise promotion: strength training, Exercise promotion: stretching, Feeding regime, Giving encouragement to exercise, Lifestyle education regarding diet, Nutrition / feeding management, Nutrition therapy, Prescribed activity/exercise education, Prescribed diet education, Prescribed dietary intake, Special diet education, Weight monitoring , Intervention, Order not done: Medical or Other reason not done ??DM Care Plan:?Patient Lifestyle Goals?Patient wants to be able to manage diabetes without too much effort.?Treatment Goals?Blood Sugars less than < 115, HbA1C < 7.0.?Barriers?no barriers.? * Follow Up:?Sunday (R beata: To check on the patient's condition) * Images: * Sign off status: Completed true * Provider:?Andrew Connelly MD Date:?01/2025 Generated for Lizzy ye/Daisy/Lul on:?09/22/2024 05:39 PM EST History and Physical Notes * HPI (History of Present Illness) Category Sub-Category Detail Notes Telehealth [facility] {...} [address] [place] [id number] Location of patient:: address listed in demographics for today's visit Patient identification confirmed using:: Name, Telehealth method:: Telephone only. Sharon ent not visible to care provider. Consent:: Patient verbally c onsented to treatment, Patient verbally consented to billing insurance company, Patient informed of any privacy concerns related to method of visit Total time spent with patient (mins): 15
--- OUTSIDE RECORDS SUMMARY | 2024-09-22 17:40 | XMS_ITS | Clinical Summary ---
Author Organization [facility] Address [address] [place] [address] Care Team Providers Care Hairspring Ii Inspector Name Role Phone Unavailable Primary Care Provider Unavailabl e Source Comments PLEASE NOTE, if this patient is a minor, it may be UNLAWFUL to discuss sensitive information that is contained in these records (such as FAMILY PLANNING, MENTAL HEALTH or SUBSTANCE ABUSE) with the minor patient's parent or other person without the patient's specific authorization.[facility] Immunizations Name Administration Dates Next Due Moderna COVID-19 Vaccine, re d cap blue label, 12+ Primary Series 12/01/2020,11/03/2020 Social History Tobacco Use Types Packs/Day Years Used Date Smoking Tobacco: Never Assessed Social Connections Answer Date Recorded Social Connections and Isolation 0 11/03/2020 Financial Resource Strain Answer Date R ecorded Financial Resource Strain 0 2020 Stress Answer Date Recorded Stress 0 11/03/2020 Physical Activity Answer Date Recorded Physical Activity 0 11/03/2020 Food Insecurity Answer Date Recorded Food 0 11/03/2020 Transportation Needs Answer Date Record ed Transportation 0 11/03/2020 Housing Stability Answer Date Recorded Housing 0 11/03/2020 Safety and Environment Answer Date Jignesh rded Safety 0 11/03/2020 Utilities Answer Date Recorded Utilities 0 11/03/2020 Employment Answer Date Recorded Employment 0 11/03/2020 Sex and Gender Information Value Date Recorded Sex Assigned at Not on file Legal Sex Male 6:35 AM PDT Gender Identity Not on file Sexual Orientation Not on file Plan of Treatment Health Maintenance Due Date Last Done Comments Diabetes Screening 1970 Hepatitis C Screening 1970 Lipid Screening 1970 Tobacco Screening 1970 HIV Screening 1984 Annual Preventive Care Visit 11/15/1987 Hypertension Screening (#1) 11/15/1987 Imm-DTaP/Tdap/Td (1 - Tdap) 1988 Imm-Hepatitis B (1 of 3 - 19 + 3-dose series) 1988 CT Colonography 2014 Colonoscopy 2014 Colorectal Cancer Screening 2014 FIT/gFOBT 2014 Fecal DNA 2014 Flexible Sigmoidoscopy 2014 Imm-Zoster, Recombinant (2 of 2) 06/15/2020 04/20/20 20 Ieq-NWAYR-19 (2023- season) 2024 021, 11/03/2020 Imm-Influenza (#1) 2024 04/20/2020 Alcohol and Drug Screen 07/30/2024 Depression Annual Screen 07/30/2024 Insurance [employer] ([facility]) Member Subscriber Plan / Payer (Ef fective 2020-Present) Name:Phong Felton Relation to Subscriber:Self Name:Phong Felton Payer ID:[id number] Type:Indemnity Address: [address] [place] [address]
--- OUTSIDE RECORDS SUMMARY | 2024-09-22 17:40 | XMS_ITS ---
Author Organization Andrew Connelly III, MD Address [address] [place] [address] [place] [address] Care Team Providers Care Security Rover Name Role Phone Andrew Connelly Primary Care Provider REASON FOR VISIT Follow up Social History Sex Assigned At : Social History Observation Description Sex Assigned At Male Encounters Encounter Location Date Provider Diagnosis Andrew Connelly III, MD [address] [place] [address] [place] [address] 08/25/2024 Andrew Connelly Plan Of Treatment Next Appt Details Provider Name:Andrew Connelly, 03/24/2025 02:00:00 PM, [address] [place] [address] [place], [address], Progress Notes * JOHN KNIGHTDOB:1970 ( 53 yo M)Acc No.[id number]:08/25/2024 Progress Notes Patient:?JOHN KNIGHT Provider:?Andrew Connelly MD :1970???Age:53 Y???Sex:Male Luke e:08/25/2024 Address:[address], [id number] Subjective: * Chief Complaints: * ???1. Follow up. * Medical History:? Objective: * Vitals:? Assessment: Plan: * Treatment: * Images: * The named appointment provid er may or may not be the originator of this progress note, and it is not deemed complete until electronically signed by the appointment provider. Sign off status: Pending * Provider:?Andrew Connelly MD Date:?07/31 Generated for Lizzy ye/Daisy/Lul on:?09/22/2024 05:40 PM EST
--- OUTSIDE RECORDS SUMMARY | 2024-09-22 17:40 | XMS_ITS | Clinical Summary ---
Author Organization [facility] Address [address] [place] [address] Care Team Providers Care Radiology Specialist Name Role Phone Unavailable Primary Care Provider Unavailabl e Social History Tobacco Use Types Packs/Day Years Used Date Smoking Tobacco: Never Assessed Sex and Gender Information Value Date Recorded Sex Assigned at Not on file Legal Sex Male 6:26 PM EDT Gender Identity Not on file Sexual Orientation Not on file Plan of Treatment Health Maintenance Due Date Last Done Comments Hepatitis C Screening 1970 DTaP/Tdap/Td (1 - Tdap) 11/15/1987 Hep B (1 of 3 - 19+ 3-dose series) 1988 Pneumococcal 50+ years (1 of 1 - PCV) 11/15/2019 Zoster (Shingrix) (1 of 2) 11/15/2019 COVID-19 Vaccine ( - 2023-2 5 season) 2024 Influenza (#1) 2024 HPV Vaccine Aged Out No longer eligi ble based on patient's age to complete this topic Hep A Aged Out No longer eligi ble based on patient's age to complete this topic Hib Aged Out No longer eligi ble based on patient's age to complete this topic Meningococcal ACWY Aged Out No longer eligible based on patient's age to complete this topic
--- OUTSIDE RECORDS SUMMARY | 2024-09-22 17:40 | XMS_ITS | Patient Health Record ---
Author Organization [facility] Address [address] [address] [place] [address] Care Team Providers Care Congregational Care Pastor Name Role Phone Andrew Connelly MD Primary Care Provider UnavailBg Prado Unavailable [phone] Allergies No Known Allergies Reason For Referral No Information Medications Medication SIG (Take, Route, Frequency, Duration) Notes Start Date End Date Status Neurontin 300 MG 1 capsule Orally Onc e a day at night for 90 days 05/13/2021 Active Simvastatin 40 MG 1 tablet in the evening Orally Once a day for 30 day(s) Active Gabapentin 300 MG 1 CAPSULE ONCE A DAY AT NIGHT ORALLY 90 DAYS for 90 Not-Taking Metoprolol Tartrate 50 MG 1 tablet with food Orally Twice a day for 30 day(s) Active Amitriptyline HCl 25 MG 1 tablet at bedt adelina Orally Once a day for 90 days 04/01/2021 Active Social History Tobacco Use: Social History Observation Description Date Details (start date - stop date) Never Smoker NA - NA Tobacco Use/Smoking Question Answer Notes Are you a: nonsmoker Additional Findings: Tobacco Non-User Current no n-smoker Alcohol Screen Question Answer Notes Did you have a drink contain ing alcohol in the past year? Yes How often did you have a dri nk containing alcohol in the past year? Monthly or less (1 point) Points 1 Interpretation Negative Tobacco use other than smoking: Question Answer Notes Are you an other tobacco user? 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) Active confirmed Problem 780666070 Interdigital neuroma of right foot (G57.81) Active confirmed Plan Of Treatment Pending Test Test Name Order Date X ray : Foot, left 3V 09/03/2020 X ray : Foot, right 3V 09/03/2020 Insurance Providers Payer Name Payer Address Payer Phone Subscriber Number Group Number Insured Name Patient Relationship to Insured Coverage Start Date Coverage End Date Amber SALMA [id number] [id number] [phone] [id number] Phong Felton Self - patient is the insured Medical (General) History Medical History History ICD Code Arthritis Chicken pox High blood pressure Joint implants/screws Transfusions Surgical History Surgery Date(Month/Year) Bilateral hip resurfacing 07/10/2008
--- OUTSIDE RECORDS SUMMARY | 2024-09-22 17:40 | XMS_ITS ---
Author Organization Andrew Connelly III, MD Address [address] [place] [address] [place] [address] Care Team Providers Care Grease Renderer Name Role Phone Andrew Connelly Primary Care Provider [phone] REASON FOR VISIT Follow up Social History Sex Assigned At : Social History Observation Description Sex Assigned At Male Encounters Encounter Location Date Provider Diagnosis Andrew Connelly III, MD [address] [place] [address] [place] [id number] 09/11/2024 Andrew Connelly Plan Of Treatment Next Appt Details Provider Name:Andrew Connelly, 03/24/2025 02:00:00 PM, [address] [place] [address] [place], [address], Progress Notes * JOHN KNIGHTDOB:1970 ( 53 yo M)Acc No.[id number]:09/11/2024 Progress Notes Patient:?JOHN KNIGHT Provider:?Andrew Connelly MD :1970???Age:53 Y???Sex:Male Luke e:09/11/2024 Address:[address] [id number] Subjective: * Chief Complaints: * ???1. Follow up. * Medical History:? Objective: * Vitals:? Assessment: Plan: * Treatment: * Images: * The named appointment provid er may or may not be the originator of this progress note, and it is not deemed complete until electronically signed by the appointment provider. Sign off status: Pending * Provider:?Andrew Connelly MD Date:?08/30 Generated for Lizzy ye/Daisy/Lul on:?09/22/2024 05:39 PM EST
--- OUTSIDE RECORDS SUMMARY | 2024-09-22 17:40 | XMS_ITS | Patient Health Record ---
Author Organization [facility] Address [address] [place] [address] Care Team Providers Care Patrol Officer Name Role Phone Andrew Connelly MD Primary Care Provider Unavailab lili Ruvalcaba Jr Garland Unavailable [phone] REASON FOR REFERRAL No Information MEDICATIONS Medication SIG (Take, Route, Frequency, Duration) Notes Start Date End Date Status MiraLax (colon prep) 8.3 ounce ((238) grams mixed with Gatorade or Crystal Light orally begin at 5:00 p.m. the day before the procedure for 1 day 07/16/2020 Active Simvastatin 40 MG TK 1 T PO QD IN THE PAR[place] Oral for 90 Active Metoprolol Tartrate 50 MG TK 1 T PO BID WF Oral for 90 Active IMMUNIZATIONS Vaccine Route Administration Date Status Comme nts Influenza Unknown 03/30/2020 Administered SOCIAL HISTORY Tobacco Use: Social History Observation Description Date Details (start date - stop date) Never Smoker NA - NA Sex Assigned At : Social History Observation Description Sex Assigned At Unknown Tobacco Use/Smoking Question Answer Notes Patient is a nonsmoker Alcohol Screen Question Answer Notes Did you have a drink contain ing alcohol in the past year? Yes How often did you have a dri nk containing alcohol in the past year? 2 to 4 times a month (2 points) How many drinks did you have on a typical day when you were drinking in the past year? 1 or 2 drinks (0 point) Points 2 Interpretation Negative PROBLEMS Problem Type ICD Code Onset Dates Problem Status W/U Status Risk SNOMED Code Notes Problem Colon cancer screening (Z12.11) Active confirmed 495351254 Problem Encounter for other preprocedural examination (Z01.818) Active confirmed 593812784 PLAN OF TREATMENT Future Test Test Name Order Date COLONOSCOPY 07/16/2020 Insurance Providers Payer Name Payer Address Payer Phone Subscriber Number Group Number Insured Name Patient Relationship to Insured Coverage Start Date Coverage End Date [facility] [address] [place], [place] [phone] [id number] JOHN KNIGHT Self - patient is the insured MEDICAL (GENERAL) HISTORY Medical History History ICD Code hypertension elevated cholesterol Surgical History Surgery Date(Month/Year) bilateral hip resurfacing 2006 Hospitalization History Reason Date(Month/Year)
--- OUTSIDE RECORDS SUMMARY | 2024-09-22 17:40 | XMS_ITS | Patient Health Record ---
Author Organization Andrew Connelly III, MD Address [address] [place] [address] Care Team Providers Care Authorization Manager Name Role Phone Andrew Connelly Primary Care Provider Allergies Allergen (clinical drug ingredient) Drug/Non Drug Allergy documented on EMR Reaction Allergy Type Onset Date Status No Known Drug Allergy Unknown Drug Allergy Active Results Component Value Reference Range Notes Lipid Panel Reviewed date:07/01/2024 09:46:43 AM Interpretation: Performing Lab:[address] [address] Notes/Report: Triglycerides 190 <150 mg/dL Desirable Triglyceride: less than 150 mg/dL Borderline High Triglyceride 150-199 mg/dL High Triglyceride: 200-499 mg/dL Very High Triglyceride: greater than or equal to 5OO mg/dL Cholesterol 214 <200 mg/dL Desirable Cholesterol: less than 200 mg/dL Borderline High Cholesterol: 200-239 mg/dL High Cholesterol: greater than 239 mg/dL LDL Cholesterol Calculated 132 <100 mg/dL Desirable LDL: less than 100 mg/dL Near Optimal/Above Optimal LDL: 110-129 mg/dL Borderline High LDL: 130-159 mg/dL High LDL: 160-189 mg/dL Very High LDL: greater than or equal to 190 mg/dL HDL Cholesterol 44 >40 mg/dL Desirable HDL: greater than 40 mg/dL Note: This HDL assay may give artificially low results in patients with liver disease. Testosterone, Total Reviewed date:07/01/2024 09:46:43 AM Interpretation: Performing Lab:[facility], [address] [place] [id number] Notes/Report: Testosterone, Total [phone] ng/dL For additional information, please refer to [email or web address] (This link is being provided for informational/ educational purposes only.) This test was developed and its analytical performance characteristics have been determined by [employer] [place], [place]. It has not been cleared or approved by the U.S. Food and Drug Administration. This assay has been validated pursuant to the CLIA regulations and is used for clinical purposes. THIS TEST WAS PERFORMED AT: [facility] [address] [place] [address] LUCA BRUNER MD,PHD Complete Blood Count Auto Di ff Reviewed date:07/01/2024 09:46:43 AM Interpretation: Performing Lab:[facility], [address] [place] [phone] Notes/Report: White Blood Count 4.9 4.8-10.8 X10*3/uL Red Blood Count 4.74 4.60-5.80 X10*6/uL Hemoglobin 14.6 14.0-18.0 g/dl Hematocrit 43.6 42.0-52.0 % Mean Corpuscular Volume 92.0 80.0-98.0 fL Mean Corpuscular Hemoglobin 30.8 27.0-33.0 pg Mean Corpuscular HGB Conc 33.5 31.0-36.0 g/dl Red Cell Distribution Width 12.6 11.0-16.0 % Platelet Count 193 160-400 X10*3/uL Mean Platelet Volume 9.9 9.4-12.4 fL Neutrophils Percent Auto 55.9 45-73 % Imm Gran Pct Auto 0.2 0.0-0.4 % Lymphocytes Percent Auto 32.6 20-40 % Monocytes Percent Auto 8.0 2-11 % Eosinophils Percent Auto 2.9 0-4 % Basophils Percent Auto 0.4 0-2 % NRBC Pct Auto 0.0 0.0-0.2 /100WBC Neutrophils Absolute Auto 2.7 2.0-8.3 x10*3/u L Imm Gran Abs Auto 0.01 0.00-0.03 X10*3/uL Lymphocytes Absolute Auto 1.6 1.2-4.9 X10*3/u L Monocytes Absolute Auto 0.4 0.1-1.2 X10*3/uL Eosinophils Absolute Auto 0.1 0.0-0.4 X10*3/u L Basophils Absolute Auto 0.0 0.0-0.2 X10*3/uL NRBC Abs Auto 0.000 0.0-0.012 X10*3/uL Comprehensive Reading. Panel Fa st Reviewed date:07/01/2024 09:46:43 AM Interpretation: Performing Lab:[facility], [address] [facility], [place] [address] Notes/Report: Sodium 141 135-145 mmol/L Potassium 4.3 3.3-5.1 mmol/L Chloride 105 96-108 mmol/L Carbon Dioxide 29 22-29 mmol/L Anion Gap 11 12-20 Blood Urea Nitrogen 10 9-16 mg/dL Creatinine 0.82 0.5-1.4 mg/dL Estimated Glomerular Filt Rate > 60 NOTE: For -Polish individuals, multiply the result by 1.210. Chronic Kidney Disease: Estimated GFR < 60 mL/min/1.73m2 Severe Kidney Disease: Estimated GFR < 15 mL/min/1.73m2 Glucose Fasting 129 60-99 mg/dL A fasting glucose of 126 mg/dl or greater on more than one occasion is considered diagnostic of diabetes. Calcium 9.5 8.4-10.2 mg/dL Bilirubin Total 0.4 0.0-1.0 mg/dL Aspartate Amino Transferase 14 5-37 U/L Alanine Aminotransferase 27 0-40 U/L Total Protein 7.4 6.5-8.0 g/dL Albumin Level 4.2 3.5-5.0 g/dL Alkaline Phosphatase 61 39-117 U/L Reason For Referral Reason Evaluate and Treat N eeds Sleep Study Questioning Sleep Apnea Diagnosis 1 Sleep apnea, unspeci fied sleep apnea type (G47.30) Referral Organization Andrew Connelly III, MD Referring Provider First Name Andrew Referring Provider Last Name Connelly Referring Provider Speciality Internal M edicine Referred Provider [facility] er, Pulmonology Referred Provider Specialty Pulmonary Di seases General Notes Yael Marshall 2023 09:38:45 AM EDT > Referral faxed with progress note, Yael Marshall 03/27/2024 09:21:42 AM EDT > Pulmonary office faxed over letter stating they tried to contact patient 3 times, , Yael Marshall 03/27/2024 02:33:55 PM EDT > Patient is scheduled to see Anaya 04/14/24 @ 10:30am Referral Priority Routine Referral Appointment Date 04/14/2024 Medications Medication SIG (Take, Route, Frequency, Duration) Notes Start Date End Date Status Simvastatin 40 MG Oral Ac tive Metoprolol Tartrate 50 mg TAKE 1 TABLET TWICE A DAY Active Zepbound 2.5 MG/0.5ML 0.5 mL Subcutaneou s 2.5mg once a week for 4 weeks 03/24/2024 Active Immunizations Vaccine Route Administration Date Status Comme nts Influenza no Preserv 3 and > Unknown 04/20/2020 Adminis tered COVID- 19 Vaccine Unknown 11/03/2020 Administered SHINGRIX Unknown 04/20/2020 Administered Influenza, quad Unknown 04/12/2021 Administered SHINGRIX Unknown 04/12/2021 Administered COVID- 19 Vaccine Unknown 12/01/2020 Administered Influenza no Preserv 3 and > Unknown 04/22/2022 Adminis tered Social History Tobacco Use: Social History Observation Description Date Details (start date - stop date) Never Smoker NA - NA Sex Assigned At : Social History Observation Description Sex Assigned At Male Tobacco Use/Smoking Question Answer Notes Patient is a nonsmoker Additional Findings: Tobacco Non-User Aggressive non-smoker Alcohol Screen Question Answer Notes Did you [...] year? 1 or 2 drinks (0 point) How often did you have 6 or more drinks on one occasion in the past year? 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 Surgical scar is healing. He is able to ambulate without difficulty. 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 The surgical scar is well-healed and ambulates without difficulty. Problem Benign prostatic hyperplasia (458705438) BPH (benign prostatic hyperplasia) (N40.0) Active confirmed He rises from sleep once or twice a night. We have discussed several modifications in his lifestyle we could make to reduce this. Problem 99294906 Essential hypertension (I10) Active confirmed His blood pressure today has beenstable at the upper limit of normal. I recommend aggressive weight reduction and aggressive sodium restriction. No change in his regimen was made.He was given an appointment to come to the office to measure his pressure in the near future. Problem Sleep apnea (48243984) Sleep apnea, unspecified sleep apnea type (G47.30) Active confirmed He continues to use his CPAP machine with good effect. Problem [id number] Carpal tunnel syndrome of left wrist (G56.02) Active confirmed He has undergone surgery for carpal tunnel syndrome with excellent results. Wound is healing will return to work. Problem Hyperlipidaemia (37184947) Hyperlipidemia, unspecified hyperlipidemia type (E78.5) Active confirmed He was instructed to resume his simvastatin to be taken with evening meal. Problem 578841634 History of umbilical hernia (Z87.19) Active confirmed The scar is well-healed in the hernia has been repaired. Problem 275929234 Morbid obesity (E66.01) Active confirmed He has gained 7 pounds since his last visit. He has been unable to acquire a weight loss program. We discussed diet and nutrition today. Continue his efforts to achieve a GLP1 medication. Problem [id number] Type 2 diabetes mellitus without complication, without long-term current use of insulin (E11.9) Active confirmed Comprehensiv e blood work with her hemoglobin A1c has been ordered. No change in his regimen was made today. Problem COVID-19 (987509779) Covid-19 (U07.1) Active confirmed He is recovered and mainly quarantined now. Problem 62250636 Hypogonadism male (E29.1) Active confirmed Vital Signs Heart Rate 67 /min 07/01/2024 Temperature 101.0 degrees Fahrenheit 09/05/2024 Blood pressure diastolic 80 mm Hg 07/01/2024 Height 70 in 09/05/2024 Blood pressure systolic 130 mm Hg 07/01/2024 Weight 315 lbs 09/05/2024 BMI 45.19 kg/m2 09/05/2024 Encounters Encounter Location Date Provider Diagnosis Andrew Connelly III, MD [address] [place] [address] [place] [phone] 10/19/2023 Andrew Connelly Essential hypertensi on I10 ; Hyperlipidemia, unspecified hyperlipidemia type E78.5 ; History of umbilical hernia Z87.19 ; Idiopathic aseptic necrosis of right femur M87.051 ; Idiopathic aseptic necrosis of left femur M87.052 ; Carpal tunnel syndrome of left wrist G56.02 ; BPH (benign prostatic hyperplasia) N40.0 and Morbid obesity E66.01 Andrew Connelly III, MD [address] [place] [address] [place] [address] 11/19/2023 Andrew Connelly Hyperlipidemia, unspecified hyperlipidemia type E78.5 ; Morbid obesity E66.01 ; Idiopathic aseptic necrosis of right femur M87.051 ; Idiopathic aseptic necrosis of left femur M87.052 ; Essential hypertension I10 ; BPH (benign prostatic hyperplasia) N40.0 and Type 2 diabetes mellitus without complication, without long-term current use of insulin E11.9 Andrew Connelly III, MD [address] [place] [address] [place] [address] 03/21/2024 Andrew Connelly Morbid obesity E66.0 1 ; Hyperlipidemia, unspecified hyperlipidemia type E78.5 ; BPH (benign prostatic hyperplasia) N40.0 and Shortness of breath R06.02 Andrew Connelly III, MD [address] [place] [address] [place] [address] 07/01/2024 Andrew Connelly Morbid obesity E66.0 1 ; Hyperlipidemia, unspecified hyperlipidemia type E78.5 ; BPH (benign prostatic hyperplasia) N40.0 and Essential hypertension I10 Andrew Connelly III, MD [address] [place] [address] [place] [address] 09/05/2024 Andrew Connelly Hyperlipidemia, unspecified hyperlipidemia type E78.5 ; Essential hypertension I10 ; History of umbilical hernia Z87.19 ; Morbid obesity E66.01 ; BPH (benign prostatic hyperplasia) N40.0 ; Type 2 diabetes mellitus without complication, without long-term current use of insulin E11.9 ; Sleep apnea, unspecified sleep apnea type G47.30 and Viral syndrome B34.9 Andrew Connelly III, MD [address] [place] [address] [address] [place], [place] [address] 03/24/2024 Andrew Connelly III, MD [address] [place] [address] [address] [place], [place] [address] 04/24/2024 Andrew Connelly Morbid obesity E66.0 1 ; Essential hypertension I10 ; Type 2 diabetes mellitus without complication, without long-term current use of insulin E11.9 and Hypogonadism male E29.1 Assessments Encounter Date Diagnosis (ICD Code) Assessment Notes T reatment Notes Treatment Clinical Notes 10/19/2023 Essential hypertension (ICD-10 - I10) His blood pressure today is stable at the upper limit of normal. I recommend aggressive weight reduction and aggressive sodium restriction. No change in his regimen was made. 10/19/2023 Hyperlipidemia, unspecified hyperlipidemia type (ICD-10 - E78.5) A fasting lipid profile will be done tomorrow. I recommended a diet restricted in animal fat calories and sodium. 11/19/2023 Hyperlipidemia, unspecified hyperlipidemia type (ICD-10 - E78.5) A fasting lipid profile will be done tomorrow. I recommended a diet restricted in animal fat calories and sodium. 11/19/2023 Morbid obesity (ICD-10 - E66.01) We have discussed his weight loss strategy at length today. I recommended aggressive weight loss and exercise and sodium restriction. He believes he is losing weight on the semaglutide regimen. 03/21/2024 Hyperlipidemia, unspecified hyperlipidemia type (ICD-10 - E78.5) He was instructed to resume his simvastatin to be taken with evening meal. 03/21/2024 Morbid obesity (ICD-10 - E66.01) He was begun on Mournjaro at his request. 07/01/2024 Hyperlipidemia, unspecified hyperlipidemia type (ICD-10 - E78.5) He was instructed to resume his simvastatin to be taken with evening meal. 07/01/2024 Morbid obesity (ICD-10 - E66.01) He has gained 7 pounds since his last visit. He has been unable to acquire a weight loss program. We discussed diet and nutrition today. Continue his efforts to achieve a GLP1 medication. 09/05/2024 Essential hypertension (ICD-10 - I10) His blood pressure today has beenstable at the upper limit of normal. I recommend aggressive weight reduction and aggressive sodium restriction. No change in his regimen was made.He was given an appointment to come to the office to measure his pressure in the near future. 09/05/2024 Hyperlipidemia, unspecified hyperlipidemia type (ICD-10 - E78.5) He was instructed to resume his simvastatin to be taken with evening meal. 04/24/2024 Morbid obesity (ICD-10 - E66.01) 10/19/2023 History of umbilical hernia (ICD-10 - Z87.19) The scar is well-healed in the hernia has been repaired. 11/19/2023 Idiopathic aseptic necrosis of right femur (ICD-10 - M87.051) He is under the care of an orthopedist. Surgical scar is healing. He is able to ambulate without difficulty. 03/21/2024 BPH (benign prostatic hyperplasia) (ICD-10 - N40.0) He rises from sleep once or twice a night. We have discussed several modifications in his lifestyle we could make to reduce this. 07/01/2024 BPH (benign prostatic hyperplasia) (ICD-10 - N40.0) He rises from sleep once or twice a night. We have discussed several modifications in his lifestyle we could make to reduce this. 09/05/2024 History of umbilical hernia (ICD-10 - Z87.19) The scar is well-healed in the hernia has been repaired. 04/24/2024 Essential hypertension (ICD-10 - I10) 10/19/2023 Idiopathic aseptic necrosis of right femur (ICD-10 - M87.051) He is under the care of an orthopedist. Surgical scar is healing. He is able to ambulate without difficulty. 11/19/2023 Idiopathic aseptic necrosis of left femur (ICD-10 - M87.052) He remains under the care of orthopedic surgeon. The surgical scar is well-healed and ambulates without difficulty. 03/21/2024 Shortness of breath (ICD-10 - R06.02) He has recently had a sensation of not being able to take a deep breath. After several tries he can successfully brief. Chest x-ray was ordered. His lungs were clear today. 07/01/2024 Essential hypertension (ICD-10 - I10) His blood pressure today has beenstable at the upper limit of normal. I recommend aggressive weight reduction and aggressive sodium restriction. No change in his regimen was made.He was given an appointment to come to the office to measure his pressure in the near future. 09/05/2024 Morbid obesity (ICD-10 - E66.01) He has gained 7 pounds since his last visit. He has been unable to acquire a weight loss program. We discussed diet and nutrition today. Continue his efforts to achieve a GLP1 medication. 04/24/2024 Type 2 diabetes mellitus without complication, without long-term current use of insulin (ICD-10 - E11.9) 10/19/2023 Idiopathic aseptic necrosis of left femur (ICD-10 - M87.052) He remains under the care of orthopedic surgeon. The surgical scar is well-healed and ambulates without difficulty. 11/19/2023 Essential hypertension (ICD-10 - I10) His blood pressure today has beenstable at the upper limit of normal. I recommend aggressive weight reduction and aggressive sodium restriction. No change in his regimen was made.He was given an appointment to come to the office to measure his pressure in the near future. 09/05/2024 BPH (benign prostatic hyperplasia) (ICD-10 - N40.0) He rises from sleep once or twice a night. We have discussed several modifications in his lifestyle we could make to reduce this. 04/24/2024 Hypogonadism male (ICD-10 - E29.1) 10/19/2023 Carpal tunnel syndrome of left wrist (ICD-10 - G56.02) He has undergone surgery for carpal tunnel syndrome with excellent results. Wound is healing will return to work. 11/19/2023 BPH (benign prostatic hyperplasia) (ICD-10 - N40.0) He rises from sleep once or twice a night to urinate. We have discussed lifestyle modification as a way to reduce nocturia. 09/05/2024 Type 2 diabetes mellitus without complication, without long-term current use of insulin (ICD-10 - E11.9) Comprehensive blood work with her hemoglobin A1c has been ordered. No change in his regimen was made today. 10/19/2023 BPH (benign prostatic hyperplasia) (ICD-10 - N40.0) He rises from sleep once or twice a night to urinate. We have discussed lifestyle modification as a way to reduce nocturia. 11/19/2023 Type 2 diabetes mellitus without complication, without long-term current use of insulin (ICD-10 - E11.9) A hemoglobin A1c in a microalbumin will be obtained. His blood glucose levels fasting or in the diabetic range after being prediabetic. I will prescribe semaglutide as a weekly injection. If necessary I will at metformin. 09/05/2024 Sleep apnea, unspecified sleep apnea type (ICD-10 - G47.30) He continues to use his CPAP machine with good effect. 10/19/2023 Morbid obesity (ICD-10 - E66.01) We have discussed his weight loss strategy at length today. I recommended aggressive weight loss and exercise and sodium restriction. 09/05/2024 Viral syndrome (ICD-10 - B34.9) This is clearly a contagious viral illness. It has features of gastroenteritis. His nausea has resolved. I recommended that he use a cough suppressant with dextromethorphan as well as Imodium for the diarrhea. He will hydrate aggressively. He will report by telephone every 48 hours. Plan Of Treatment Pending Test Test Name Order Date PROFILE, FASTING (COMPREHENSIVE METABOLI C) 04/24/2024 PROFILE, FASTING (COMPREHENSIVE METABOLI C) 06/18/2018 PROFILE, FASTING (COMPREHENSIVE METABOLI C) 06/07/2021 PROFILE, FASTING (COMPREHENSIVE METABOLI C) 06/01/2020 PROFILE, FASTING (COMPREHENSIVE METABOLI C) 02/22/2018 PROFILE, FASTING (COMPREHENSIVE METABOLI C) 05/05/2019 PROFILE, FASTING (COMPREHENSIVE METABOLI C) 03/21/2024 LIPID PANEL 06/18/2018 LIPID PANEL 06/01/2020 LIPID PANEL 02/22/2018 LIPID PANEL 05/05/2019 PSA, TOTAL 05/05/2019 PSA, TOTAL 06/07/2021 PSA, TOTAL 06/01/2020 CBC w DIFF 06/01/2020 CBC w DIFF 04/24/2024 CBC w DIFF 05/05/2019 CBC w DIFF 06/18/2018 CBC w DIFF 06/07/2021 CBC w DIFF 02/22/2018 CBC WITH AUTO DIFF 03/21/2024 SARS COV2 RNA RT PCR 05/03/2021 Lipid Panel 03/21/2024 Lipid Panel 06/07/2021 XR chest 4 views 03/21/2024 Hemoglobin A1c 03/21/2024 Next Appt Details Provider Name:Andrew Connelly, 03/24/2025 02:00:00 PM, [address] [place] [address] [address], [place], [address], Insurance Providers Payer Name Payer Address Payer Phone Subscriber Number Group Number Insured Name Patient Relationship to Insured Coverage Start Date Coverage End Date [employer] [address] [place] [address] [phone] [id number] JOHN FELTON Self - patient is the insured Medical (General) History Medical History History ICD Code Hypertension, unspecified type I10 Hyperlipidemia, unspecified hyperlipidem ia type E78.5 obesity aseptic necrosis of the hips history of umbilical hernia Surgical History Surgery Date(Month/Year) umbilical repair 2007 aseptic necrosis of right and left hip 0 03/2000 left hip replacement 07/10/2008 right hip replacement 07/14/2008 Colonoscopy, [facility], Dr. Ruvalcaba 07/2020 No history Hospitalization History Reason Date(Month/Year) multiple orthopedic procedures No history
== END 2024-09-22 15:56 | disposition home or self-care (01) ==
PROVIDERS: PCP Internal Medicine Medical Oncology; Visit Provider Nurse Practitioner Family
DX: G47.33 Obstructive sleep apnea (adult) (pediatric) (principal); G47.34 Idiopathic sleep related nonobstructive alveolar hypoventilation
CPT/HCPCS: 99214

== ENCOUNTER → 2024-09-22 15:24 | Outpatient (BNVA) | payer OTHER, SELFPAY | PROVIDERS: PCP Internal Medicine Medical Oncology; Visit Provider Nurse Practitioner Family ==

== ENCOUNTER 2024-10-18 13:01 | Emergency (ER) | payer OTHER, SELFPAY ==
--- NOTE | ~2024-10-18 | US_ITS ---
CLINICAL HISTORY: thigh pain, swelling Venous duplex ultrasound right lower extremity Comparison: None Findings: The visualized deep veins are fully compressible with normal Doppler color flow and spectral tracings. No popliteal cyst. IMPRESSION: 1. Negative for right lower extremity deep vein thrombosis. This document has been electronically signed by: Lenore Power MD on 10/18/2024 15:14:00
--- NOTE | ~2024-10-18 | XR_ITS ---
CLINICAL HISTORY: right thigh pain 3 views lumbar spine Comparison: None Findings: Normal vertebral body alignment. No acute fractures or dislocation. Mild degenerative disc disease at T12-L1, L1-L2 and L5-S1. Partial visualization of bilateral hip replacement hardware. Unremarkable appearance. IMPRESSION: No acute findings. This document has been electronically signed by: Lenore Power MD on 10/18/2024 15:45:26
[2024-10-18 13:03] VITALS: BP 196/82; PULSE 75; RESP 20; TEMP 37.1; O2SAT 98; BMI 43.7
--- NOTE | 2024-10-18 13:03 | ED_ITS ---
HPI - Extremity Problem General Chief complaint: Extremity Injury, Lower Stated complaint: blood clot in leg ? 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 States thigh has been swollen. Denies chest pain, palpitations, shortness of breath. Denies fevers. Reports occasionally pain can be provoked by changing position from sitting to standing, and notes the pain at this time is typically to right groin. Recently started using CPAP machine around 10 days ago. States he has been sleeping flat on his back in bed due to the CPAP machine. BP elevated in triage, denies chest pain, dyspnea, palpitations, headache, vision changes, dizziness or lightheadedness. MD Complaint: extremity pain Onset (ago): day(s) Pain Consistency: intermittent Location: right and lower extremity Quality: sharp Associated symptoms: denies other symptoms Related Data Home Medications ?Medication ?Instructions ?Recorded ?Confirmed metoprolol succinate 50 mg 50 mg PO BID 08/04/20 09/22/24 tablet,extended release 24 hr simvastatin 40 mg tablet 40 mg PO BEDTIME 08/04/20 09/22/24 Previous Rx's ?Medication ?Instructions ?Recorded lidocaine 5 % topical patch 1 patch topical DAILY #15 ea 10/18/24 prednisone 20 mg tablet See Rx Instructions .Route 10/18/24 .COMPLEX #18 tabs Allergies Allergy/AdvReac Type Severity Reaction Status Date / Time No Known Allergies Allergy Verified 10/18/24 13:06 Review of Systems Review of Systems: As per HPI Yes all other systems are reviewed and are negative Constitutional: Constitutional: Reports as per HPI PMFSH Past Medical History Medical History Degenerative arthritis Elevated cholesterol Heartburn History of general anesthesia HTN (hypertension) Obesity Surgical History History of hip surgery Social History Social History Alcohol intake: current Alcohol intake frequency: a few times a month Alcohol type: beer Patient Tobacco Use Status: Never used Tobacco Advance Directives: No Advance Directives Information Provided: No Physical Exam Vital Signs: Vital Signs: Last Vital Signs Temp 98.7 F 10/18/24 13:03 Pulse 75 10/18/24 13:03 Resp 20 10/18/24 13:03 BP 196/82 H 10/18/24 13:03 Pulse Ox 98 10/18/24 13:03 O2 Del Method Room Air 10/18/24 13:03 BMI result Body Mass Index 43.7 Vital signs have been reviewed and appear to be correct. Blood pressure elevated. Heart rate normal. Respiratory rate normal. Temperature normal. Oxygen saturation normal. Const: General: cooperative, healthy appearing and no acute distress Orientation/consciousness: oriented to person, oriented to place, oriented to time and patient oriented x3 Limitations: no limitations HEENT: Head: Yes normocephalic and Yes atraumatic Ears: external ears normal General nose exam: Normal external nose present Face and sinus: Yes face symmetric Mouth: oropharynx normal and moist mucous membranes Throat: Yes uvula midline Eyes: Pupils: Equal, round and reactive pupils present Neck: Neck: Yes normal visual inspection and Yes supple Resp: Effort & Inspection: normal respiratory effort and able to speak in complete sentences Auscultation: clear to auscultation bilaterally Cardio: Rate: regular rate Rhythm: regular rhythm Heart sounds: S1 normal heart sound present and S2 normal heart sound present GI: Palpation (GI): Soft to palpation and nontender Auscultation: normoactive bowel sounds : General: Yes no CVA tenderness Back/Spine/Pelvis: Back: no CVA tenderness Thoracic/Lumbar Spine: thoracic and lumbar spine normal to inspection, thoraco-lumbar ROM normal, straight leg raise negative bilaterally, No pain with thoraco-lumbar ROM and No lumbar spinal tenderness Skin: General skin exam: elasticity normal and turgor normal Neuro: General: oriented to person, oriented to place, oriented to time, patient oriented x3, gait normal, tone normal, moves all extremities, Normal light touch and pain sensation, no focal motor deficits, CN's II-XI intact bilaterally and deep tendon reflexes 2+ bilaterally Cranial nerves: Yes Equal, round and reactive pupils present Cognition (Neuro): normal cognition Motor exam (neuro): 5/5 motor strength present throughout, Normal motor muscle tone present throughout and Motor abnormalities not present Extrem: General: Yes full ROM, Yes no pedal edema and Yes no calf tenderness Right lower extremity: normal to inspection, hip/thigh Details: normal to inspection and normal ROM; no tenderness and no swelling and foot Details: normal capillary refill and vascular exam Details: dorsalis pedis pulse present, posterior tibial pulse present and normal capillary refill Psych: Mental Status: mental status grossly normal Affect: normal affect Thought process: Normal thought process present Course Course Course Narrative: This is an RME performed by Venecia Yañez CNP: Additional HPI, ROS, PE not included below will be deferred to primary provider. Patient is a 53-year-old male who presents emergency department for evaluation of right swelling, numbness, stabbing pain. Not exacerbated by ambulation. Denies precipitating fall injury. 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 On exam patient is awake, A+Ox3, VS WNL, afebrile, normal neurological exam without focal deficits, physical exam findings as above. Given reported symptoms and physical exam findings, initial differential includes but is not limited to DVT, muscle strain, lumbar radiuclopathy. U/S right leg notable for no evidence of DVT. Lumbar x-ray shows mild DDD at T12-L1, L1-L2, and L5-S1. My interpretation is in agreement with the radiologist's interpretation. Results discussed with patient and all questions answered. Will treat with tapering course of prednisone and topical lidocaine patches. Advised patient to follow up with PCP for further evaluation of symptoms. Return precautions discussed at bedside. Patient verbalized understanding of and agreement with plan. Differential Diagnosis Differential Diagnoses: The differential diagnosis associated with the presentation includes As per [facility] Admission/Observation Consideration of admission/observation: Escalation of care including admission/observation considered Patient would have been admitted to the hospital had their work up had any findings where hospital admission was appropriate and their clinical presentation warranted hospital admission. Independent Interpretation I performed an independent interpretation of an: Plain X-Ray and Ultrasound Interpretation: U/S right leg notable for no evidence of DVT. Lumbar x-ray shows mild DDD at T12-L1, L1-L2, and L5-S1. Radiology Impression Discussion of test interpretation with radiology: I have reviewed the radiologist's reading. Radiologist Impression: 3 views lumbar spine Comparison: None Findings: Normal vertebral body alignment. No acute fractures or dislocation. Mild degenerative disc disease at T12-L1, L1-L2 and L5-S1. Partial visualization of bilateral hip replacement hardware. Unremarkable appearance. IMPRESSION: No acute findings. Venous duplex ultrasound right lower extremity Comparison: None Findings: The visualized deep veins are fully compressible with normal Doppler color flow and spectral tracings. No popliteal cyst. IMPRESSION: 1. Negative for right lower extremity deep vein thrombosis. External Record Review External record reviewed: Inpatient record, Office record and Outpatient record Prescription Management I considered prescription management with: Other Discharge Plan Discharge Clinical Impression: Lumbar radiculopathy Patient Disposition: Home, Self-Care Instructions: Lumbar Radiculopathy (ED) Additional Instructions: You were evaluated in the emergency department today for right thigh pain. Your ultrasound did not show evidence of a DVT (blood clot). Your lumbar x-ray showe d degenerative disease which may be causing your symptoms. You are being treated with a tapering course of prednisone which is a steroid to decrease inflammation. You are also being prescribed topical lidocaine patches which you can wear for up to 12 hours in a 24 hour period. Do not apply heat directly over the patches. We recommend that you follow-up with your primary care provider for further evaluation of your symptoms. Return to the emergency department if you develop worsening pain, fever, numbness or tingling to her groin area, loss of bowel or bladder control or any other new or concerning symptoms. Prescriptions: New lidocaine 5 % adhesive patch,medicated 1 patch topical DAILY Qty: 15 0RF Rx Instructions: leave on most painful area for up to 12 hrs prednisone 20 mg tablet See Rx Instructions .ROUTE .COMPLEX Qty: 18 0RF Rx Instructions: 60mg (3 tabs) x 3 days, then 40mg (2 tabs) x 3 days, then 20mg (1 tab) x 3 days o'clock try No Action metoprolol succinate 50 mg Tablet Extended Release 24 Hr 50 mg PO BID simvastatin 40 mg Tablet 40 mg PO BEDTIME Print Language: Serbian
[2024-10-18 16:26] VITALS: BP 196/82; PULSE 75; RESP 20; TEMP 37.1; O2SAT 98
== END 2024-10-18 16:26 | disposition home or self-care (01) ==
PROVIDERS: Emergency Provider Emergency Medicine; PCP Internal Medicine Medical Oncology
DX: M54.16 Radiculopathy, lumbar region (principal); M79.604 Pain in right leg
CPT/HCPCS: 72100; 93971; 99282; 99284

== ENCOUNTER → 2024-10-18 13:08 | Outpatient (BNV) | payer OTHER, SELFPAY | PROVIDERS: Emergency Provider Emergency Medicine; PCP Internal Medicine Medical Oncology; Visit Provider Radiology Diagnostic Radiology | DX: M79.651 Pain in right thigh (principal); R22.41 Localized swelling, mass and lump, right lower limb | CPT/HCPCS: 72100; 93971 ==

== ENCOUNTER 2024-11-06 18:14 | Outpatient (REF) | payer OTHER, SELFPAY ==
--- NOTE | ~2024-11-06 | MR_ITS ---
EXAMINATION: MR LUMBAR SPINE WITHOUT IV CONTRAST History: LBP, BILAT LEG PAIN Technique: Sagittal T1, T2 and STIR, and axial T1 and T2 weighted images of the lumbar spine were obtained per departmental protocol. Comparison: Correlation is made with plain films of the lumbar spine dated 10/18/2024. Findings: The vertebral bodies maintain normal height, alignment, and marrow signal intensity. There is minimal disc desiccation at the L3-4 and L4-5 levels. The intervertebral discs maintain normal height. At T12-L1,there is no evidence of disc herniation, central spinal stenosis, or neural foraminal narrowing. At L1-2, there is no evidence of disc herniation, central spinal stenosis, or neural foraminal narrowing. At L2-3, there is no evidence of disc herniation, central spinal stenosis, or neural foraminal narrowing. At L3-4, there is mild facet and ligamentum flavum hypertrophy. There is mild narrowing of the inferior recess of the right neural foramen. The left neural foramen is patent. At L4-5, there is moderate facet osteoarthritis. There is resultant mild narrowing of the inferior recess of the left neural foramen. There is no central or right neural foraminal stenosis. At L5-S1, there is no evidence of disc herniation, central spinal stenosis, or neural foraminal narrowing. The conus terminates at the T12-L1 level and demonstrates normal signal intensity. There is moderate to marked fatty atrophy of the distal left psoas muscle. MR/MR lumbar spine wo con Impression: 1. Mild degenerative changes as described. 2. Moderate to marked fatty atrophy of the distal left psoas muscle. Electronically signed by: Andrew Webb MD 11/07/2024 07:56 AM EDT
== END 2024-11-06 18:15 | disposition home or self-care (01) ==
LOC: HO.MRI 18:14
PROVIDERS: PCP Internal Medicine Medical Oncology; Visit Provider Internal Medicine Medical Oncology
DX: M54.50 Low back pain, unspecified (principal); M79.604 Pain in right leg; M79.605 Pain in left leg
CPT/HCPCS: 72148

== ENCOUNTER → 2024-11-06 18:18 | Outpatient (BNV) | payer OTHER, SELFPAY | PROVIDERS: PCP Internal Medicine Medical Oncology; Visit Provider Radiology Diagnostic Radiology | DX: M54.50 Low back pain, unspecified (principal); M51.369 Other intervertebral disc degeneration, lumbar region without mention of lumbar back pain or lower extremity pain; M62.58 Muscle wasting and atrophy, not elsewhere classified, other site | CPT/HCPCS: 72148 ==

== ENCOUNTER 2024-11-28 10:17 | Outpatient (REF) | payer OTHER, SELFPAY ==
--- NOTE | ~2024-11-28 | XR_ITS ---
EXAMINATION: XR CHEST CLINICAL INFORMATION: chronic cough COMPARISON: January 16, 2023. TECHNIQUE: 2 views of the chest were obtained. FINDINGS: No consolidation, pleural effusion or pneumothorax. Cardiomediastinal silhouette size is normal. Multilevel thoracic spondylosis. Patient's large body habitus/obesity. XR/XR chest 2V IMPRESSION: No acute airspace disease. Stable chest. Electronically signed by: Gutierrez Cai MD 11/28/2024 10:40 AM EDT
--- OUTSIDE RECORDS SUMMARY | 2024-11-28 11:20 | XMS_ITS ---
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 Name Role Phone Andrew Connelly Primary Care Provider [phone] REASON FOR VISIT Message Social History Sex Assigned At : Social History Observation Description Sex Assigned At Male Encounters Encounter Location Date Provider Diagnosis Andrew Connelly III, MD [address] [place] [address] [place] [address] 11/25/2024 Andrew Connelly Plan Of Treatment Next Appt Details Provider Name:Andrew Connelly, 12/26/2024 04:30:00 PM, [address] [place] [address] [place], [address], Provider Name:Andrew Connelly, 03/24/2025 02:00:00 PM, [address] [place] [address] [place], [address], Progress Notes * JOSE FRANCISCOJOHN WallaceDOB:1970 ( 54 yo M)Acc No.[id number]:11/25/2024 Patient:?JOHN KNIGHT :1970???Age:54 Y???Sex:Male Address:[address] [place], [address] * true * Date:? Generated for Printi ng/Faxing/eTransmitting on:?11/28/2024 11:20 AM EDT
--- OUTSIDE RECORDS SUMMARY | 2024-11-28 11:20 | XMS_ITS | Clinical Summary ---
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 Name Role Phone Unavailable Primary Care Provider Unavailabl e Source Comments PLEASE NOTE, if this patient is a minor, it may be UNLAWFUL to discuss sensitive information that is contained in these records (such as FAMILY PLANNING, MENTAL HEALTH or SUBSTANCE ABUSE) with the minor patient's parent or other person without the patient's specific authorization.[facility] Immunizations Immunization Administration Dates Next Due Moderna COVID-19 Vaccine, [...] Health Maintenance Due Date Last Done Comments Anxiety Screening 1970 Diabetes Screening 1970 Hepatitis C Screening 1970 Lipid Screening 1970 Tobacco Screening 1970 HIV Screening 1984 Hypertension Screening (#1) 11/15/1987 Imm-DTaP/Tdap/Td (1 - Tdap) 1988 Imm-Hepatitis B (1 of 3 - 19 + 3-dose series) 1988 CT Colonography 2014 Colonoscopy 2014 Colorectal Cancer Screening 2014 FIT/gFOBT 2014 Fecal DNA 2014 Flexible Sigmoidoscopy 2014 Imm-Zoster, Recombinant (2 of 2) 06/15/2020 04/20/20 20 [id number] (2023- season) 2024 021, 11/03/2020 Imm-Influenza (#1) 2024 04/20/2020 Alcohol and Drug Screen 07/30/2024 Depression Annual Screen 07/30/2024 Insurance [employer] ([facility]) Member Subscriber Plan / Payer (Ef fective 2020-Present) Name:Phong Felton Relation to Subscriber:Self Name:Phong Felton Payer ID:[id number] Type:Indemnity Address: [address] [place] [address]
--- OUTSIDE RECORDS SUMMARY | 2024-11-28 11:20 | XMS_ITS ---
Author Organization Andrew Connelly III, MD Address [address] [address] Care Team Providers Care Natural Sciences Department Chair Name Role Phone Andrew Connelly Primary Care Provider [phone] Allergies Allergen (clinical drug ingredient) Drug/Non Drug Allergy documented on EMR Reaction Allergy Type Onset Date Status No Known Drug Allergy Unknown Drug Allergy Active REASON FOR VISIT Follow up Medications Medication SIG (Take, Route, Frequency, Duration) Notes Start Date End Date Status Zepbound 5 MG/0.5ML 0.5 mL Subcutaneous once a week 11/25/2024 Active Metoprolol Tartrate 50 mg TAKE 1 TABLET TWICE A DAY po twice a day Active dexAMETHasone 2 MG 1 tablet Orally ever y 12 hrs 10/24/2024 Active Gabapentin 100 MG 1 capsule at bedtime Orally three times a day 10/24/2024 Active Amoxicillin 500 MG 1 capsule Orally lilian ry 8 hrs for 10 days 11/28/2024 12/08/2024 Active Social History Tobacco Use: Social History Observation Description Date Details (start date - stop date) Never Smoker NA - NA Sex Assigned At : Social History Observation Description Sex Assigned At Male Tobacco Use/Smoking Question Answer Notes Patient is a nonsmoker Additional Findings: Tobacco Non-User Aggressive non-smoker Vital Signs Temperature 98.4 degrees Fahrenheit 11/29/19 25 Blood pressure systolic 170 mm Hg 11/29/19 25 Blood pressure diastolic 77 mm Hg 025 Heart Rate 72 /min 11/28/2024 Height 70 in 11/28/2024 Weight 318 lbs 11/28/2024 BMI 45.62 kg/m2 11/28/2024 Encounters Encounter Location Date Provider Diagnosis Andrew Connelly III, MD [address] [place] [address] [address] [place] [address] 11/28/2024 Andrew Connelly Morbid obesity E66.01 and Chronic cough R05.3 Assessments Encounter Date Diagnosis (ICD Code) Assessment Notes Treatment Notes Treatment Clinical Notes 11/28/2024 Morbid obesity (ICD-10 - E66.01) He remains obese. We are continuing to try to obtain weight loss medication for him. He says his weight has been stable. We discussed his weight loss strategy in detail. 11/28/2024 Chronic cough (ICD-10 - R05.3) Plan Of Treatment Medication Medication Name Sig Start Date Stop Date Notes Zepbound 5 MG/0.5ML 0.5 mL Subcutaneous once a week 2024 Metoprolol Tartrate 50 mg TAKE 1 TABLET TWICE A DAY po twice a day dexAMETHasone 2 MG 1 tablet Orally every 12 hrs 10/24/2024 Gabapentin 100 MG 1 capsule at bedtime Orally three times a day 10/24/2024 Amoxicillin 500 MG 1 capsule Orally lilian ry 8 hrs for 10 days 11/28/2024 12/08/2024 Pending Test Test Name Order Date XR CHEST 2 VIEW PA & LAT 11/28/2024 Next Appt Details Follow Up: 4 Weeks, Reason: Telehealth Provider Name:Andrew Connelly, 12/26/2024 04:30:00 PM, [address] [place] [address] [address], [place], [address], Provider Name:Andrew Connelly, 03/24/2025 02:00:00 PM, [address] [place] [address] [address], [place], [address], Progress Notes * PHONG FELTONDOB:1970 ( 54 yo M)Acc No.[id number]:11/28/2024 Progress Notes Patient:?PHONG FELTON Provider:?Andrew Connelly MD :1970???Age:54 Y???Sex:Male Luke e:11/28/2024 Address: [address], [id number] Subjective: * Chief Complaints: * ???1. Follow up. * HPI: ???COVID-19 Screening:?shootng pain came back last night, right leg gets warm and then pain enters down to knee, down 3, no wt gain on a cruise, lingering cough, took om's amoxicillin. ?Questions?Have you had any new onset fever, chills, cough, congestion, sore throat, shortness of breath, muscle aches??No * ROS:?General/Constitutional:?pain?only normal aches and pains.?Chills?denies.?Fatigue?admits.?Fever?denies.?ENT:?Decreased hearing?denies.?Respiratory:?Cough?denies.?Cardiovascular:?Chest pain with exertion?denies.?Dyspnea on exertion?denies.?Shortness of breath?denies.?Gastrointestinal:?Constipation?denies.?Decreased appetite?denies.?Diarrhea?denies.?Heartburn?denies.?Nausea?denies.?Rectal bleeding?denies.?Vomiting?denies.?Hematology:?bruising?denies.?petechiae?denies.?Swollen glands?none have been noted.?Genitourinary:?Frequent urination?denies.?Musculoskeletal:?Muscle aches?denies.?Painful joints?denies.?Sciatica?denies.?Weakness?denies.?Skin:?Itching?denies.?Rash?denies.?Skin lesion(s)?denies.?Neurologic:?Difficulty speaking?denies.?Dizziness?denies.?Headache?denies.?Low back pain?denies.?Psychiatric:?Depressed mood?denies.? * Medical History:?Hypertensio n, unspecified type, Hyperlipidemia, unspecified hyperlipidemia type, Obesity, Aseptic necrosis of the hips, History of umbilical hernia. 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 Ruvalcaba 07/2020, No history . * Hospitalization/Major Diagno stic Procedure:?multiple orthopedic procedures , No history . * Family History:?Father: dece ased 77 yrs, diagnosed with HTN, DM.?Mother: 71 yrs, breast cancer.?1 brother(s) , 1 sister(s) . 1 son(s) - healthy. .? His mother has heart disease and a history of bypass surgery. He also diaz has a history of prostate cancer. His mother has history of breast cancer. His brother has hypertension, hyperlipidemia. * Social History:?Tobacco Use:?Tobacco Use/Smoking?Patient is a?nonsmoker ?Additional Findings: Tobacco Non-User?Aggressive non-smoker ???He was born in [place]. He has been a [employer] for 16 years. He is to for He has a son Phong. He works 60 hours a week. * Medications:?Taking Gabapent in 100 MG Capsule 1 capsule at bedtime Orally three times a day , Taking dexAMETHasone 2 MG Tablet 1 tablet Orally every 12 hrs , Taking Zepbound 5 MG/0.5ML Solution Auto-injector 0.5 mL Subcutaneous once a week , stop date 01/24/2025, Taking Metoprolol Tartrate 50 mg Tablet TAKE 1 TABLET TWICE A DAY po twice a day , Medication List reviewed and reconciled with the patient * Allergies:?No Known Drug All ergy. Objective: * Vitals:?Ht: 70, Wt: 318, BMI :45.62, BP: 170/77, HR: 72, Temp: 98.4, Ht-cm: 177.8, Wt-k.24. * Examination: ???General Examination: ?GENERAL APPEARANCE:?pleasant, well nourished, well developed, in no acute distress, calm and relaxed.?HEAD:?atraumatic, normocephalic.?EYES:?eomi, perrla, anicteric, conjugate.?EARS:?normal.?NOSE:?septum intact.?ORAL CAVITY:?normal, unremarkable.?NECK/THYROID:?no jugular venous distention, no carotid bruit, thyroid normal.?LYMPH NODES:?no enlarged lymph nodes,spleen normal.?SKIN:?no suspicious lesions, anicteric.?HEART:?no clicks, gallops, murmurs, or rubs, regular rhythm, S1, S2 normal, no s3, or vascular bruits.?LUNGS:?clear to auscultation .?BREASTS:??no masses palpable bilaterally.?ABDOMEN:?bowel sounds normal, no ascites, no organomegaly, no mass.?RECTAL EXAM:?not examined.?MUSCULOSKELETAL:?extremities unremarkable, no clubbing, cyanosis or edema.?PERIPHERAL PULSES:?normal.?NEUROLOGIC:?alert and oriented, cranial nerves 2-12 grossly intact, deep tendon reflexes 2+ symmetrical, motor strength normal upper and lower extremities, sensory exam intact.?PSYCH:?alert, oriented.? Assessment: * Assessment: 1.?Morbid obesity - E66.01?? ?Notes :He remains obese. We are continuing to try to obtain weight loss medication for him. He says his weight has been stable. We discussed his weight loss strategy in detail.???2.?Chronic cough - R05.3??? Plan: * Treatment: 2.?Chronic cough?Imaging: XR CHEST 2 VIEW PA & LAT 3.?Others? Continue Metoprolol Tartrate Tablet, 50 mg, TAKE 1 TABLET TWICE A DAY, po, twice a day;?Continue Zepbound Solution Auto-injector, 5 MG/0.5ML, 0.5 mL, Subcutaneous, once a week.?? * Preventive Medicine:? ??Counseling:?Care goal follow-up plan:?Counseling [...] done: Medical or Other reason not done * Follow Up:?4 Weeks (Reason: Telehealth) * Images: * The named appointment provid er may or may not be the originator of this progress note, and it is not deemed complete until electronically signed by the appointment provider. Sign off status: Pending * Provider:?Andrew Connelly MD Date:?08/2024 Generated for Lizzy ye/Daisy/eTransmitting on:?11/28/2024 11:20 AM EDT History and Physical Notes * HPI (History of Present Illness) Category Sub-Category Detail Notes COVID-19 Screening Questions Have you had any new onset fever, chills, cough, congestion, sore throat, shortness of breath, muscle aches?: No Examination Category Sub-Category Detail Notes General Examination GENERAL APPEARANCE: pleasant , well nourished, well developed, in no acute distress, calm and relaxed HEAD: atraumatic, normocep halic EYES: eomi, perrla, anicte corby, conjugate EARS: normal NOSE: septum intact NECK/THYROID: no jugular venous di stention, no carotid bruit, thyroid normal HEART: no clicks, gallops, murmurs, or rubs, regular rhythm, S1, S2 normal, no s3, or vascular bruits LUNGS: clear to auscultatio n ABDOMEN: bowel sounds normal, no ascites, no organomegaly, no mass NEUROLOGIC: alert and oriented, cranial nerves 2-12 grossly intact, deep tendon reflexes 2+ symmetrical, motor strength normal upper and lower extremities, sensory exam intact SKIN: no suspicious lesion s, anicteric PERIPHERAL PULSES: normal BREASTS: no masses palpable b ilaterally MUSCULOSKELETAL: extremities unremark able, no clubbing, cyanosis or edema LYMPH NODES: no enlarged lymph no lenny,spleen normal RECTAL EXAM: not examined PSYCH: alert, oriented ORAL CAVITY: normal, unremarkable
--- OUTSIDE RECORDS SUMMARY | 2024-11-28 11:21 | XMS_ITS ---
Author Organization Andrew Connelly III, MD Address [address] [place] [address] Care Team Providers Care Freezer Unloader Name Role Phone Andrew Connelly Primary Care Provider REASON FOR VISIT Rx Refill Medications Medication SIG (Take, Route, Frequency, Duration) Notes Start Date End Date Status Metoprolol Tartrate 50 mg TAKE 1 TABLET TWICE A DAY po twice a day for 90 days Activ e Social History Sex Assigned At : Social History Observation Description Sex Assigned At Male Encounters Encounter Location Date Provider Diagnosis Andrew Connelly III, MD [address] [place] [address] [place] [address] 11/25/2024 Andrew Connelly Plan Of Treatment Medication Medication Name Sig Start Date Stop Date Notes Metoprolol Tartrate 50 mg TAKE 1 TABLET TWICE A DAY po twice a day for 90 days Next Appt Details Provider Name:Andrew Connelly, 12/26/2024 04:30:00 PM, [address] [place] [address] [place], [address], Provider Name:Andrew Connelly, 03/24/2025 02:00:00 PM, [address] [place] [address] [place], [address], Progress Notes * EUGENEJOHNDOB:1970 ( 54 yo M)Acc No.[id number]:11/25/2024 Patient:?EUGENEJOHN Wallace :1970???Age:54 Y???Sex:Male Address: [address], [place], [place], [address] * Refills? Refill Metoprolol Tartrate Tablet, 50 mg, po, 180, TAKE 1 TABLET TWICE A DAY, twice a day, 90 days, Refills=3 * true * Date:? Generated for Lizzy ye/Daisy/eTransmitting on:?11/28/2024 11:21 AM EDT
--- OUTSIDE RECORDS SUMMARY | 2024-11-28 11:21 | XMS_ITS | Patient Health Record ---
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 Plan Of Treatment Pending Test Test Name Order Date X ray : Foot, left 3V 09/03/2020 X ray : Foot, right 3V 09/03/2020 Insurance Providers Payer Name Payer Address Payer Phone Subscriber Number Group Number Insured Name Patient Relationship to Insured Coverage Start Date Coverage End Date Amber SALMA [id number] [place] [phone] [id number] Phong Felton Self - patient is the insured Medical (General) History Medical History History ICD Code Arthritis Chicken pox High blood pressure Joint implants/screws Transfusions Surgical History Surgery Date(Month/Year) Bilateral hip resurfacing 07/10/2008
--- OUTSIDE RECORDS SUMMARY | 2024-11-28 11:21 | XMS_ITS | Patient Health Record ---
Author Organization [facility] Address [address] [place] [address] Care Team Providers Care Mainspring Strip Inspector Name Role Phone Andrew Connelly MD Primary Care Provider Unavailab Garland Nunes Jr Unavailable Reason For Referral No Information Medications Medication [...] PO BID WF Oral for 90 Active Immunizations Vaccine Route Administration Date Status Comme nts Influenza Unknown 03/30/2020 Administered Social History Tobacco Use: Social History Observation Description Date Details (start date - stop date) Never Smoker NA - NA Tobacco Use/Smoking Question Answer Notes Patient is [...] drinks (0 point) Points 2 Interpretation Negative Problems Problem Type SNOMED Code ICD Code Onset Dates Problem Status W/U Status Risk Notes Problem [id number] Colon cancer screening (Z12.11) Active confirmed Problem 753652203 Encounter for other preprocedural examination (Z01.818) Active confirmed Plan Of Treatment Future Test Test Name Order Date COLONOSCOPY 07/16/2020 Insurance Providers Payer Name Payer Address Payer Phone Subscriber Number Group Number Insured Name Patient Relationship to Insured Coverage Start Date Coverage End Date [employer] [address] [place], [place] [phone] [id number] JOHN KNIGHT Self - patient is the insured Medical (General) History Medical History History ICD Code hypertension elevated cholesterol Surgical History Surgery Date(Month/Year) bilateral hip resurfacing 2006 Hospitalization History Reason Date(Month/Year)
--- OUTSIDE RECORDS SUMMARY | 2024-11-28 11:21 | XMS_ITS | Clinical Summary ---
Author Organization [facility] Address [address] [place] [address] Care Team Providers Care Mold Yard Worker Name Role Phone Unavailable Primary Care Provider [...] ( - 2023-2 5 season) 2024 Influenza (Season Ended) 2025 HPV Vaccine Aged Out No longer eligi [...]
--- OUTSIDE RECORDS SUMMARY | 2024-11-28 11:21 | XMS_ITS | Patient Health Record ---
Author Organization Andrew Connelly III, MD Address [address] [place] [address] Care Team Providers Care Lumber Scaler Name Role Phone Andrew Connelly Primary Care Provider Allergies Allergen (clinical drug ingredient) Drug/Non Drug Allergy documented on EMR Reaction Allergy Type Onset Date Status No Known Drug Allergy Unknown Drug Allergy Active Results Component Value Reference Range Notes Lipid Panel Reviewed date:07/01/2024 09:46:43 AM Interpretation: Performing Lab:[address] [address] Notes/Report: Triglycerides 190 <150 mg/dL Desirable Triglyceride: [...] Total Reviewed date:07/01/2024 09:46:43 AM Interpretation: Performing Lab:[facility], [address] [place] [phone] Notes/Report: Testosterone, Total 298 929-4650 ng/dL For additional information, please refer to http://education.[employer]/ faq/ TotalTestosteroneLC [email or web address] (This link is being provided for informational/ educational purposes only.) This test was developed and its analytical performance characteristics have been determined by [facility] [place], [place]. It has not been cleared or approved by the U.S. Food and Drug Administration. This assay has been validated pursuant to the CLIA regulations and is used for clinical purposes. THIS TEST WAS PERFORMED AT: [employer] [id number] [place] [address] LUCA BRUNER MD,PHD Complete Blood Count Auto Di ff Reviewed date:07/01/2024 09:46:43 AM Interpretation: Performing Lab:[facility], [address] [place] [phone] Notes/Report: White Blood Count 4.9 4.8-10.8 X10*3/uL [...] 0.0-0.2 /100WBC Neutrophils Absolute Auto 2.7 2.0-8.3 x10*3/uL Imm Gran Abs Auto 0.01 0.00-0.03 X10*3/uL Lymphocytes Absolute Auto 1.6 1.2-4.9 X10*3/uL Monocytes Absolute Auto 0.4 0.1-1.2 X10*3/uL Eosinophils Absolute Auto 0.1 0.0-0.4 X10*3/uL Basophils Absolute Auto 0.0 0.0-0.2 X10*3/uL NRBC Abs Auto 0.000 0.0-0.012 X10*3/uL Comprehensive [place]. Panel Fa st Reviewed date:07/01/2024 09:46:43 AM Interpretation: Performing Lab:[facility], [address] [place] [phone] Notes/Report: Sodium 141 135-145 mmol/L Potassium 4.3 3.3-5.1 mmol/L Chloride 105 96-108 mmol/L Carbon Dioxide 29 22-29 mmol/L Anion Gap 11 12-20 Blood Urea Nitrogen 10 9-16 mg/dL Creatinine 0.82 0.5-1.4 mg/dL Estimated Glomerular Filt Rate > 60 NOTE: For -[place] individuals, multiply the result by 1.210. Chronic [...] 3.5-5.0 g/dL Alkaline Phosphatase 61 39-117 U/L US venous duplex LE RT Reviewed date:10/19/2024 08:33:06 PM Interpretation: Performing Lab: Notes/Report: [address] [address] Ultrasound Report Signed Patient: John Felton MR#: [id number] : 1970 Acct:[id number] Age/Sex: 53 / M ADM Date: 10/18/24 Loc: HO.ED Attending Dr: Ordering Physician: Annabelle Yañez CNP Date of Service: 10/18/24 Procedure(s): US venous duplex LE RT Accession Number(s): [id number] cc: Annabelle Yañez CNP; Andrew Connelly MD CLINICAL HISTORY: thigh pain, swelling Venous duplex ultrasound right lower extremity Comparison: None Findings: The visualized deep veins are fully compressible with normal Doppler color flow and spectral tracings. No popliteal cyst. IMPRESSION: 1. Negative for right lower extremity deep vein thrombosis. This document has been electronically signed by: Lenore Power MD on 10/18/2024 15:14:00 Dictated By: Lenore Power MD Signed By: <Electronically signed by Lenore Power MD in OV> 10/18/241514 DD/ 151 TD/TT: 10/18/241513 Bodily Injury Adjuster: [place] [address] Ultrasound Report Signed Patient: John Felton MR#: [id number] : 1970 Acct:[id number] Age/Sex: 53 / M ADM Date: 10/18/24 Loc: .ED Attending Dr: Ordering Physician: Annabelle Yañez CNP Date of Service: 10/18/24 Procedure(s): US tania ous duplex LE RT Accession Number(s): [id number] cc: Annabelle Yañez CNP; Andrew Connelly MD CLINICAL HISTORY: th igh pain, swelling Venous duplex ultras ound right lower extremity Comparison: None Findings: The visualized deep veins are fully compressible with normal Doppler color flow and spectral tracings. No popliteal cyst. IMPRESSION: 1. Negative for righ t lower extremity deep vein thrombosis. This document has be en electronically signed by: Lenore Power MD on 10/18/2024 15:14:00 Dictated By: Lenore Power MD Signed By: <Electronically signed by Lenore Power MD in OV> 10/18/241514 DD/ 1514 TD/TT: 10/18/241513 Bodily Injury Adjuster: CUCA lumbar spine 2-3V Reviewed date:10/19/2024 08:33:06 PM Interpretation: Performing Lab: Notes/Report: [address] [address] XRay Report Signed Patient: John Felton MR#: [id number] : 1970 Acct:[id number] Age/Sex: 53 / M ADM Date: 10/18/24 Loc: HO.ED Attending Dr: Ordering Physician: Bailey Michel NP Date of Service: 10/18/24 Procedure(s): XR lumbar spine 2-3V Accession Number(s): [id number] cc: Andrew Connelly MD; Bailey Michel NP CLINICAL HISTORY: right thigh pain 3 views lumbar spine Comparison: None Findings: Normal vertebral body alignment. No acute fractures or dislocation. Mild degenerative disc disease at T12-L1, L1-L2 and L5-S1. Partial visualization of bilateral hip replacement hardware. Unremarkable appearance. IMPRESSION: No acute findings. This document has been electronically signed by: Lenore Power MD on 10/18/2024 15:45:26 Dictated By: Lenore Power MD Signed By: <Electronically signed by Lenore Power MD in OV> 10/18/24 1546 DD/ 1545 TD/TT: 10/18/24 1545 Bodily Injury Adjuster: [address] [address] XRay Report Signed Patient: John Felton MR#: [id number] : 1970 Acct:[id number] Age/Sex: 53 / M ADM Date: 10/18/24 Loc: HO.ED Attending Dr: Ordering Physician: Bailey Michel NP Date of Service: 10/18/24 Procedure(s): XR lum bar spine 2-3V Accession Number(s): [id number] cc: Andrew Connelly MD; Bailey Michel NP CLINICAL HISTORY: ri ght thigh pain 3 views lumbar spine Comparison: None Findings: Normal vertebral bod y alignment. No acute fractures o r dislocation. Mild degenerative di sc disease at T12-L1, L1-L2 and L5-S1. Partial visualizatio n of bilateral hip replacement hardware. Unremarkable appearance. IMPRESSION: No acute findings. This document has be en electronically signed by: Lenore Power MD on 10/18/2024 15:45:26 Dictated By: Lenore Power MD Signed By: <Electronically signed by Lenore Power MD in OV> 10/18/24 1546 DD/ 154 TD/TT: 10/18/24 1545 Bodily Injury Adjuster: MR lumbar spine wo con Reviewed date:11/15/2024 08:51:47 AM Interpretation: Performing Lab: Notes/Report: [address] [address] Magnetic Resonance Report Signed Patient: John Felton MR#: [id number] : 1970 Acct:[id number] Age/Sex: 53 / M ADM Date: 11/06/24 Loc: HO.MRI Attending Dr: Andrew Connelly MD Ordering Physician: Andrew Connelly MD Date of Service: 11/06/24 Procedure(s): MR lumbar spine wo con Accession Number(s): [id number] cc: Andrew Connelly MD Workstation: [id number] EXAMINATION: MR LUMBAR SPINE WITHOUT IV CONTRAST History: LBP, BILAT LEG PAIN Technique: Sagittal T1, T2 and STIR, and axial T1 and T2 weighted images of the lumbar spine were obtained per departmental protocol. Comparison: Correlation is made with plain films of the lumbar spine dated 10/18/2024. Findings: The vertebral bodies maintain normal height, alignment, and marrow signal intensity. There is minimal disc desiccation at the L3-4 and L4-5 levels. The intervertebral discs maintain normal height. At T12-L1,there is no evidence of disc herniation, central spinal stenosis, or neural foraminal narrowing. At L1-2, there is no evidence of disc herniation, central spinal stenosis, or neural foraminal narrowing. At L2-3, there is no evidence of disc herniation, central spinal stenosis, or neural foraminal narrowing. At L3-4, there is mild facet and ligamentum flavum hypertrophy. There is mild narrowing of the inferior recess of the right neural foramen. The left neural foramen is patent. At L4-5, there is moderate facet osteoarthritis. There is resultant mild narrowing of the inferior recess of the left neural foramen. There is no central or right neural foraminal stenosis. At L5-S1, there is no evidence of disc herniation, central spinal stenosis, or neural foraminal narrowing. The conus terminates at the T12-L1 level and demonstrates normal signal intensity. There is moderate to marked fatty atrophy of the distal left psoas muscle. MR/MR lumbar spine wo con Impression: 1. Mild degenerative changes as described. 2. Moderate to marked fatty atrophy of the distal left psoas muscle. Electronically signed by: Andrew Webb MD 11/07/2024 07:56 AM EDT Dictated By: Andrew Webb MD Signed By: <Electronically signed by Andrew Webb MD in OV> 11/07/24 0756 DD/ 17 TD/TT: 11/06/241836 Bodily Injury Adjuster: [place] [address] Magnetic Resonance Report Signed Patient: John Felton MR#: [id number] : 1970 Acct:[id number] Age/Sex: 53 / M ADM Date: 11/06/24 Loc: HO.MRI Attending Dr: Andrew Connelly MD Ordering Physician: Andrew Connelly MD Date of Service: 11/06/24 Procedure(s): MR lum bar spine wo con Accession Number(s): [id number] cc: Andrew Connelly MD EXAMINATION: MR LUMB AR SPINE WITHOUT IV CONTRAST History: LBP, BILAT LEG PAIN Technique: Sagittal T1, T2 and STIR, and axial T1 and T2 weighted images of the lumbar spine were obtained per departmental protocol. Comparison: Correlat ion is made with plain films of the lumbar spine dated 10/18/2024. Findings: The vertebral bodies maintain normal height, alignment, and marrow signal intensity. Th ere is minimal disc desiccation at the L3-4 and L4-5 levels. The intervertebral discs maintain normal height. At T12-L1,there is n o evidence of disc herniation, central spinal stenosis, or neural foraminal narrowing. At L1-2, there is no evidence of disc herniation, central spinal stenosis, or neural foraminal narrowing. At L2-3, there is no evidence of disc herniation, central spinal stenosis, or neural foraminal narrowing. At L3-4, there is mi ld facet and ligamentum flavum hypertrophy. There is mild narrowing of the inferior recess of the right neural foramen. The left neural fora men is patent. At L4-5, there is moderate facet osteoarthritis. There is resultant mild narrowing of th e inferior recess of the left neural foramen. There is no central or rig ht neural foraminal stenosis. At L5-S1, there is n o evidence of disc herniation, central spinal stenosis, or neural foraminal narrowing. The conus terminates at the T12-L1 level and demonstrates normal signal intensity. There is moderate to marked fatty atrophy of the distal left psoas muscle. M R/MR lumbar spine wo con Impression: 1. Mild degenerative changes as described. 2. Moderate to marke d fatty atrophy of the distal left psoas muscle. Electronically marj d by: Andrew Webb MD 11/07/2024 07:56 AM EDT RP Dictated By: Andrew Webb MD Signed By: <Electronically signed by Andrew Webb MD in OV> 11/07/24 0756 DD/ 1818 TD/TT: 11/06/24 1837 Bodily Injury Adjuster: XR chest 2V (Not yet reviewe d by provider) Interpretation: Performing Lab: Notes/Report: [address] [address] XRay Report Signed Patient: John Felton MR#: [id number] : 1970 Acct:[id number] Age/Sex: 54 / M ADM Date: 11/28/24 Loc: HO.LAB Attending Dr: Andrew Connelly MD Ordering Physician: Andrew Connelly MD Date of Service: 11/28/24 Procedure(s): XR chest 2V Accession Number(s): [id number] cc: Andrew Connelly MD EXAMINATION: XR CHEST CLINICAL INFORMATION: chronic cough COMPARISON: January 16, 2023. TECHNIQUE: 2 views of the chest were obtained. FINDINGS: No consolidation, pleural effusion or pneumothorax. Cardiomediastinal silhouette size is normal. Multilevel thoracic spondylosis. Patient's large body habitus/obesity. XR/XR chest 2V IMPRESSION: No acute airspace disease. Stable chest. Electronically signed by: Gutierrez Cai MD 11/28/2024 10:40 AM EDT RP Dictated By: Gutierrez Bertrand MD Signed By: <Electronically signed by Gutierrez Tomlin MD in OV> 11/28/24 1040 DD/ 1024 TD/TT: 11/28/24 1037 Bodily Injury Adjuster: [place] [address] XRay Report Signed Patient: John Felton MR#: [id number] : 1970 Acct:[id number] Age/Sex: 54 / M ADM Date: 11/28/24 Loc: HO.LAB Attending Dr: Andrew Connelly MD Ordering Physician: Andrew Connelly MD Date of Service: 11/28/24 Procedure(s): XR chest 2V Accession Number(s): [id number] cc: Andrew Connelly MD EXAMINATION: XR CHEST CLINICAL INFORMATION: chronic cough COMPARISON: January 16, 2023. TECHNIQUE: 2 views of the chest were obtained. FINDINGS: No consolidation, pl eural effusion or pneumothorax. Cardiomediastinal silhouette size is normal. Multilevel thoracic spondylosis. Patient's large body habitus/obesity. X R/XR chest 2V IMPRESSION: No acute airspace disease. Stable chest. Electronically marj d by: Gutierrez Cai MD 11/28/2024 10:40 AM EDT RP Dictated By: Gutierrez Noble MD Signed By: <Electronically signed by Gutierrez Tomlin MD in OV> 11/28/24 1040 DD/ 1024 TD/TT: 11/28/24 1037 Bodily Injury Adjuster: Reason For Referral Reason Evaluate and Treat N eeds Sleep Study Questioning Sleep Apnea Diagnosis 1 Sleep apnea, unspeci fied sleep apnea type (G47.30) Referral Organization Andrew Connelly III, MD Referring Provider First Name Andrew Referring Provider Last Name Maricel Referring Provider Speciality Internal M edicine Referred Provider [facility] er, Pulmonology Referred Provider Specialty Pulmonary Avani cox General Notes [place],Amber 2023 09:38:45 AM EDT > Referral faxed with progress note, [place],Amber 03/27/2024 09:21:42 AM EDT > Pulmonary office [...] hrs for 10 days 11/28/2024 12/08/2024 Active Immunizations Vaccine Route Administration Date Status [...] Problem Status W/U Status Risk Notes Problem [id number] 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 Surgical scar is healing. He is able to ambulate without difficulty. 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 The surgical scar is well-healed and ambulates without difficulty. Problem Benign prostatic hyperplasia (855705259) BPH (benign prostatic hyperplasia) (N40.0) Active confirmed He rises from sleep once or twice a night. We have discussed several modifications in his lifestyle we could make to reduce this. Problem 11923275 Essential hypertension (I10) Active confirmed His blood pressure today has beenstable at the upper limit of normal. I recommend aggressive weight reduction and aggressive sodium restriction. No change in his regimen was made.He was given an appointment to come to the office to measure his pressure in the near future. Problem 44888656 Sciatica, unspecified laterality (M54.30) Active confirmed He continues to have back pain radiating down his leg. He was continued on current medication. He may need physical therapy and rehabilitation consultation. An MRI is being planned. Problem Sleep apnea (66707317) Sleep apnea, unspecified sleep apnea type (G47.30) Active confirmed He continues t o use his CPAP machine with good effect. Problem [id number] Carpal tunnel syndrome of left wrist (G56.02) Active confirmed He has undergone surgery for carpal tunnel syndrome with excellent results. Wound is healing will return to work. Problem Hyperlipidaemia (54768393) Hyperlipidemia, unspecified hyperlipidemia type (E78.5) Active confirmed He was instructed to resume his simvastatin to be taken with evening meal. Problem 189802836 History of umbilical hernia (Z87.19) Active confirmed The scar is well-healed in the hernia has been repaired. Problem 345767462 Morbid obesity (E66.01) Active confirmed He remains obese. We are continuing to try to obtain weight loss medication for him. He says his weight has been stable. We discussed his weight loss strategy in detail. Problem [id number] Sciatica of right side (M54.31) Active confirmed Low back pain has resolved. He continues to have improving sciatica down the right leg. The MRI showed only mild degenerative changes with no surgical problem. Problem 006534705 Type 2 diabetes mellitus without complication, without long-term current use of insulin (E11.9) Active confirmed Comprehensiv e blood work with her hemoglobin A1c has been ordered. No change in his regimen was made today. Vital Signs Heart Rate 72 /min 11/28/2024 Temperature 98.4 degrees Fahrenheit 11/28/2024 Blood pressure diastolic 77 mm Hg 11/28/2024 Height 70 in 11/28/2024 Blood pressure systolic 170 mm Hg 11/28/2024 Weight 318 lbs 11/28/2024 BMI 45.62 kg/m2 11/28/2024 Encounters Encounter Location Date Provider Diagnosis Andrew Connelly III, MD [address] [place] [address] [place] [address] 11/28/2024 Andrew Connelly Morbid obesity E66.0 1 and Chronic cough R05.3 Andrew Connelly III, MD [address] [place] [address] [place] [address] 03/21/2024 Andrew Connelly Morbid obesity E66.0 1 ; Hyperlipidemia, unspecified hyperlipidemia type E78.5 ; BPH (benign prostatic hyperplasia) N40.0 and Shortness of breath R06.02 Andrew Connelly III, MD [address] [place] [address] [place] [address] 07/01/2024 Andrew Connelly Morbid obesity E66.0 1 ; Hyperlipidemia, unspecified hyperlipidemia type E78.5 ; BPH (benign prostatic hyperplasia) N40.0 and Essential hypertension I10 Andrew Connelly III, MD [address] [place] [address] [place] [address] 09/05/2024 Andrew Connelly Hyperlipidemia, unspecified hyperlipidemia type E78.5 ; Essential hypertension I10 ; History of umbilical hernia Z87.19 ; Morbid obesity E66.01 ; BPH (benign prostatic hyperplasia) N40.0 ; Type 2 diabetes mellitus without complication, without long-term current use of insulin E11.9 ; Sleep apnea, unspecified sleep apnea type G47.30 and Viral syndrome B34.9 Andrew Connelly III, MD [address] [place] [address] [place] [address] 09/24/2024 Andrew Connelly Morbid obesity E66.0 1 ; Sleep apnea, unspecified sleep apnea type G47.30 ; BPH (benign prostatic hyperplasia) N40.0 ; Essential hypertension I10 ; Type 2 diabetes mellitus without complication, without long-term current use of insulin E11.9 and Viral syndrome B34.9 Andrew Connelly III, MD [address] [place] [address] [place] [address] 10/24/2024 Andrew Connelly Morbid obesity E66.0 1 ; Right groin pain R10.31 ; Essential hypertension I10 ; History of umbilical hernia Z87.19 ; Idiopathic aseptic necrosis of right femur M87.051 ; Idiopathic aseptic necrosis of left femur M87.052 ; BPH (benign prostatic hyperplasia) N40.0 and Type 2 diabetes mellitus without complication, without long-term current use of insulin E11.9 Andrew Connelly III, MD [address] [place] [address] [place] [address] 10/27/2024 Andrew Connelly Morbid obesity E66.0 1 ; Sciatica, unspecified laterality M54.30 ; Essential hypertension I10 ; Hyperlipidemia, unspecified hyperlipidemia type E78.5 ; History of umbilical hernia Z87.19 ; Idiopathic aseptic necrosis of right femur M87.051 ; Idiopathic aseptic necrosis of left femur M87.052 and BPH (benign prostatic hyperplasia) N40.0 Andrew Connelly III, MD [address] [place] [address] [place] [address] 11/12/2024 Andrew Connelly Morbid obesity E66.0 1 ; Hyperlipidemia, unspecified hyperlipidemia type E78.5 ; Essential hypertension I10 ; BPH (benign prostatic hyperplasia) N40.0 ; Type 2 diabetes mellitus without complication, without long-term current use of insulin E11.9 ; Sleep apnea, unspecified sleep apnea type G47.30 and Sciatica of right side M54.31 Andrew Connelly III, MD [address] [place] [address] [place] [address] 03/24/2024 Andrew Connelly III, MD [address] [place] [address] [place] [address] 04/24/2024 Andrew Connelly Morbid obesity E66.0 1 ; Essential hypertension I10 ; Type 2 diabetes mellitus without complication, without long-term current use of insulin E11.9 and Hypogonadism male E29.1 Andrew Connelly III, MD [address] [place] [address] [place] [address] 09/25/2024 Andrew Connelly III, MD [address] [place] [address] [place] [address] 09/29/2024 Andrew Connelly III, MD [address] [place] [address] [place] [address] 10/15/2024 Andrew Connelly III, MD [address] [place] [address] [place] [address] 10/20/2024 Andrew Connelly III, MD [address] [place] [address] [place] [address] 10/21/2024 Andrew Connelly III, MD [address] [place] [address] [place] [address] 10/21/2024 Andrew Connelly III, MD [address] [place] [address] [place] [address] 10/28/2024 Andrew Connelly III, MD [address] [place] [address] [place] [address] 11/24/2024 Andrew Connelly III, MD [address] [place] [address] [place] [address] 11/25/2024 Andrew Connelly III, MD [address] [place] [address] [place] [address] 11/25/2024 Andrew Connelly Assessments Encounter Date Diagnosis (ICD Code) Assessment Notes T reatment Notes Treatment Clinical Notes 11/28/2024 Morbid obesity (ICD-10 - E66.01) He remains obese. We are continuing to try to obtain weight loss medication for him. He says his weight has been stable. We discussed his weight loss strategy in detail. 03/21/2024 Hyperlipidemia, unspecified hyperlipidemia type (ICD-10 - [...] simvastatin to be taken with evening meal. 09/24/2024 Sleep apnea, unspecified sleep apnea type (ICD-10 - G47.30) He continues to use his CPAP machine with good effect. 09/24/2024 Morbid obesity (ICD-10 - E66.01) He remains obese. We are continuing to try to obtain weight loss medication for him. He says his weight has been stable. We discussed his weight loss strategy in detail. 10/24/2024 Morbid obesity (ICD-10 - E66.01) He remains obese. His body mass index is 46. We are continuing to try to obtain weight loss medication for him. He says his weight has been stable. We discussed his weight loss strategy in detail. 10/24/2024 Right groin pain (ICD-10 - R10.31) The pain begins in the right groin extends in a direct line down to the knee anteriorly. It does not appear to be a lateral femoral cutaneous nerve impingement.An MRI of the lumbar spine is pending. The physical examination of the areas normal. The right hip replacement appears to be intact. 10/27/2024 Sciatica, unspecified laterality (ICD-10 - M54.30) He continues to have back pain radiating down his leg. He was continued on current medication. He may need physical therapy and rehabilitation consultation. An MRI is being planned. 10/27/2024 Morbid obesity (ICD-10 - E66.01) He remains obese. We are continuing to try to obtain weight loss medication for him. He says his weight has been stable. We discussed his weight loss strategy in detail. 11/12/2024 Hyperlipidemia, unspecified hyperlipidemia type (ICD-10 - E78.5) He was instructed to resume his simvastatin to be taken with evening meal. 11/12/2024 Morbid obesity (ICD-10 - E66.01) He remains obese. We are continuing to try to obtain weight loss medication for him. He says his weight has been stable. We discussed his weight loss strategy in detail. 04/24/2024 Morbid obesity (ICD-10 - E66.01) 11/28/2024 Chronic cough (ICD-10 - R05.3) 03/21/2024 BPH (benign prostatic hyperplasia) (ICD-10 - [...] well-healed in the hernia has been repaired. 09/24/2024 BPH (benign prostatic hyperplasia) (ICD-10 - N40.0) He rises from sleep once or twice a night. We have discussed several modifications in his lifestyle we could make to reduce this. 10/24/2024 Essential hypertension (ICD-10 - I10) His blood pressure today has beenstable at the upper limit of normal. I recommend aggressive weight reduction and aggressive sodium restriction. No change in his regimen was made.He was given an appointment to come to the office to measure his pressure in the near future. 10/27/2024 Essential hypertension (ICD-10 - I10) His blood pressure today has beenstable at the upper limit of normal. I recommend aggressive weight reduction and aggressive sodium restriction. No change in his regimen was made.He was given an appointment to come to the office to measure his pressure in the near future. 11/12/2024 Essential hypertension (ICD-10 - I10) His blood pressure today has beenstable at the upper limit of normal. I recommend aggressive weight reduction and aggressive sodium restriction. No change in his regimen was made.He was given an appointment to come to the office to measure his pressure in the near future. 04/24/2024 Essential hypertension (ICD-10 - I10) 03/21/2024 Shortness of breath (ICD-10 - R06.02) [...] his efforts to achieve a GLP1 medication. 09/24/2024 Essential hypertension (ICD-10 - I10) His blood pressure today has beenstable at the upper limit of normal. I recommend aggressive weight reduction and aggressive sodium restriction. No change in his regimen was made.He was given an appointment to come to the office to measure his pressure in the near future. 10/24/2024 History of umbilical hernia (ICD-10 - Z87.19) The scar is well-healed in the hernia has been repaired. 10/27/2024 Hyperlipidemia, unspecified hyperlipidemia type (ICD-10 - E78.5) He was instructed to resume his simvastatin to be taken with evening meal. 11/12/2024 BPH (benign prostatic hyperplasia) (ICD-10 - N40.0) He rises from sleep once or twice a night. We have discussed several modifications in his lifestyle we could make to reduce this. 04/24/2024 Type 2 diabetes mellitus without complication, without long-term current use of insulin (ICD-10 - E11.9) 09/05/2024 BPH (benign prostatic hyperplasia) (ICD-10 - N40.0) He rises from sleep once or twice a night. We have discussed several modifications in his lifestyle we could make to reduce this. 09/24/2024 Type 2 diabetes mellitus without complication, without long-term current use of insulin (ICD-10 - E11.9) Comprehensive blood work with her hemoglobin A1c has been ordered. No change in his regimen was made today. 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 Surgical scar is healing. He is able to ambulate without difficulty. 10/27/2024 History of umbilical hernia (ICD-10 - Z87.19) The scar is well-healed in the hernia has been repaired. 11/12/2024 Type 2 diabetes mellitus without complication, without long-term current use of insulin (ICD-10 - E11.9) Comprehensive blood work with her hemoglobin A1c has been ordered. No change in his regimen was made today. 04/24/2024 Hypogonadism male (ICD-10 - E29.1) 09/05/2024 Type 2 diabetes mellitus without complication, without long-term current use of insulin (ICD-10 - E11.9) Comprehensive blood work with her hemoglobin A1c has been ordered. No change in his regimen was made today. 09/24/2024 Viral syndrome (ICD-10 - B34.9) He has contracted another viral syndrome. This one is mild. He has low-grade fever and a nonproductive cough and sore throat and rhinorrhea. He was treated conservatively with a follow-up visit. 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 The surgical scar is well-healed and ambulates without difficulty. 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 Surgical scar is healing. He is able to ambulate without difficulty. 11/12/2024 Sleep apnea, unspecified sleep apnea type (ICD-10 - G47.30) He continues to use his CPAP machine with good effect. 09/05/2024 Sleep apnea, unspecified sleep apnea type (ICD-10 - G47.30) He continues to use his CPAP machine with good effect. 10/24/2024 BPH (benign prostatic hyperplasia) (ICD-10 - N40.0) He rises from sleep once or twice a night. We have discussed several modifications in his lifestyle we could make to reduce this. 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 The surgical scar is well-healed and ambulates without difficulty. 11/12/2024 Sciatica of right side (ICD-10 - M54.31) Low back pain has resolved. He continues to have improving sciatica down the right leg. The MRI showed only mild degenerative changes with no surgical problem. 09/05/2024 Viral syndrome (ICD-10 - B34.9) This is clearly a contagious viral illness. It has features of gastroenteritis. His nausea has resolved. I recommended that he use a cough suppressant with dextromethorphan as well as Imodium for the diarrhea. He will hydrate aggressively. He will report by telephone every 48 hours. 10/24/2024 Type 2 diabetes mellitus without complication, without long-term current use of insulin (ICD-10 - E11.9) Comprehensive blood work with her hemoglobin A1c has been ordered. No change in his regimen was made today. 10/27/2024 BPH (benign prostatic hyperplasia) (ICD-10 - N40.0) He rises from sleep once or twice a night. We have discussed several modifications in his lifestyle we could make to reduce this. Plan Of Treatment Pending Test Test Name Order Date PROFILE, FASTING (COMPREHENSIVE METABOLI C) 06/18/2018 PROFILE, FASTING (COMPREHENSIVE METABOLI C) 06/07/2021 PROFILE, FASTING (COMPREHENSIVE METABOLI C) 04/24/2024 PROFILE, FASTING (COMPREHENSIVE METABOLI C) 06/01/2020 PROFILE, FASTING (COMPREHENSIVE METABOLI C) 02/22/2018 PROFILE, FASTING (COMPREHENSIVE METABOLI C) 05/05/2019 PROFILE, FASTING (COMPREHENSIVE METABOLI C) 03/21/2024 LIPID PANEL 06/18/2018 LIPID PANEL 06/01/2020 LIPID PANEL 02/22/2018 LIPID PANEL 05/05/2019 PSA, TOTAL 05/05/2019 PSA, TOTAL 06/07/2021 PSA, TOTAL 06/01/2020 CBC w DIFF 06/01/2020 CBC w DIFF 05/05/2019 CBC w DIFF 04/24/2024 CBC w DIFF 06/18/2018 CBC w DIFF 06/07/2021 CBC w DIFF 02/22/2018 MRI LUMBAR SPINE NO CONTRAST 10/27/2024 XR CHEST 2 VIEW PA & LAT 11/28/2024 CBC WITH AUTO DIFF 03/21/2024 SARS COV2 RNA RT PCR 05/03/2021 Lipid Panel 03/21/2024 Lipid Panel 06/07/2021 XR chest 4 views 03/21/2024 XR chest 2V 11/28/2024 Hemoglobin A1c 03/21/2024 Next Appt Details Provider Name:Andrew Connelly, 12/26/2024 04:30:00 PM, [address] [place] [address] [address], [place], [phone], Provider Name:Andrew Connelly, 03/24/2025 02:00:00 PM, [address] [place] [address] [address], [place], [id number], Insurance Providers Payer Name Payer Address Payer Phone Subscriber Number Group Number Insured Name Patient Relationship to Insured Coverage Start Date [facility]age End Date [facility] [address] [place] [phone] [id number] JOHN FELTON Self - patient is the insured 1 Medical (General) History Medical History History ICD Code Hypertension, unspecified type I10 Hyperlipidemia, unspecified hyperlipidem ia type E78.5 obesity aseptic necrosis of the hips history of umbilical hernia Surgical History Surgery Date(Month/Year) No history Colonoscopy, [facility], Dr. Ruvalcaba 07/2020 right hip replacement 07/14/2008 left hip replacement 07/10/2008 aseptic necrosis of right and left hip 0 03/2000 umbilical repair 2007 Hospitalization History Reason Date(Month/Year) No history multiple orthopedic procedures
== END 2024-11-28 10:18 | disposition home or self-care (01) ==
LOC: HO.LAB 10:17
PROVIDERS: PCP Internal Medicine Medical Oncology; Visit Provider Internal Medicine Medical Oncology
DX: R05.3 Chronic cough (principal)
CPT/HCPCS: 71046

== ENCOUNTER → 2024-11-28 10:24 | Outpatient (BNV) | payer OTHER, SELFPAY | PROVIDERS: PCP Internal Medicine Medical Oncology; Visit Provider Radiology Diagnostic Radiology | DX: R05.3 Chronic cough (principal) | CPT/HCPCS: 71046 ==

== ENCOUNTER 2024-12-17 11:11 | Outpatient (AMB) | payer OTHER, SELFPAY ==
--- NOTE | 2024-12-17 11:13 | MHC.OFFVIS ---
Vital Signs 12/17/24 11:15 Height 5 ft 10 in Weight 312 lb BMI 44.8 BP 168/76 H Blood Pressure Location Rt brachial Position Sitting Pulse 63 Pulse Source Pulse Oximeter Pulse Oximetry (%) 97 Oxygen Delivery Method Room Air Intake Visit Reasons: Sleep Apnea Allergies No Known Allergies Allergy (Verified 12/17/24 11:20) HPI HPI Sleep Apnea: Details: Phong is a pleasant 54 year old male, never smoker, with underlying severe KOBE, HTN and HLD. He was initially some for home sleep study for loud snoring, witnessed apneas, significant daytime fatigue, and nonrestorative sleep. Prior home sleep study revealed severe KOBE, AHI 67 with significant nocturnal hypoxemia, lowest 63%, average 89% and <88% for 140 minutes. In lab sleep study recommended CPAP therapy which was initiated and he started in September 2024. Today he presents CPAP compliance report. At this time denies any respiratory symptoms. [facility] Medical History Degenerative arthritis Elevated cholesterol Heartburn History of general anesthesia HTN (hypertension) Obesity Surgical History History of hip surgery Social History (Reviewed 12/17/24 @ 11:20 by Jeannine Resendez [facility]) Alcohol intake: current Alcohol intake frequency: a few times a month Alcohol type: beer Patient Tobacco Use Status: Never used Tobacco Review of Systems Const Denies chills, Denies excessive sweating, Denies fever(s), Denies headache(s) and Denies night sweats Eyes Denies dry eyes, Denies irritation and Denies itchy eyes ENT Reports Normal hearing present, Denies headache(s), Denies nasal congestion, Denies nasal discharge, Denies post nasal drip and Denies sore throat Card Denies chest pain, Denies chest pain at rest, Denies chest pain with activity, Denies claudication, Denies leg edema, Reports dyspnea, Denies dyspnea on exertion, Denies orthopnea and Reports paroxysmal nocturnal dyspnea Resp Denies excessive phlegm production, Denies pain on inspiration, Denies pain with cough, Reports dyspnea, Denies dyspnea on exertion, Denies stridor and Denies wheezing Musc Denies myalgias Neuro Reports Normal hearing present and Denies headache(s) Endo Denies excessive sweating Shamir/Lymph Denies lymphadenopathy Aller/Immun Denies itchy eyes, Denies seasonal rhinorrhea and Denies wheezing Physical Exam Vital Signs: Last Vital Signs Pulse 63 12/17/24 11:15 BP 168/76 H 12/17/24 11:15 Pulse Ox 97 12/17/24 11:15 Oxygen Delivery Method Room Air 12/17/24 11:15 BMI result Body Mass Index 44.8 Const General: cooperative, healthy appearing, comfortable, no acute distress, well developed and alert Nutritional Appearance: obese Orientation/consciousness: patient oriented x3 Limitations: no limitations HEENT Head: Yes normal to inspection, Yes normocephalic and Yes atraumatic Ears: hearing grossly normal bilaterally and external ears normal Eyes General: appearance normal, both eyes and all related structures Eyelids: Yes eyelids normal Sclerae: sclerae normal EOM: EOMs intact bilaterally Neck Neck: Yes normal visual inspection and Yes no lymphadenopathy Lymphatic: no lymphadenopathy noted Chest Chest palpation & inspection: normal inspection of the chest Resp Effort & Inspection: normal respiratory effort, able to speak in complete sentences, no audible wheezes, no cough, no stridor, not tachypneic, no tripod positioning and no use of accessory muscles Cardio Jugular venous distension: no JVD Skin Other: warm, dry General skin exam: no rashes or lesions noted Neuro General: patient oriented x3 Cranial nerves: Yes Normal hearing present Cognition (Neuro): normal cognition Gait exam (Neuro): Normal gait present Extrem General: Yes normal to inspection, Yes capillary refill normal, Yes no clubbing, cyanosis or edema and Yes no pedal edema Psych Appearance: grossly normal and well kempt Speech and movement: Normal speech and movement present and Clear speech present Affect: normal affect Attitude: cooperative Thought process: Normal thought process present Thought content: Normal thought content present Insight: Good insight present (Psych) Judgement: Good judgement present (Psych) Assessment & Plan Assessment & Plan (1) Severe obstructive sleep apnea: Code(s): G47.33 - Obstructive sleep apnea (adult) (pediatric) Category: Medical (2) Nocturnal hypoxemia: Code(s): G47.34 - Idiopathic sleep related nonobstructive alveolar hypoventilation Category: Medical Plan Reviewed compliance report which revealed 100% compliance of the last 30 days, minimal leaking an AHI average less than 3. Unfortunately he continues with non restorative sleep as he reports difficulties with mask. Advised patient to reach out to [facility] to discuss trialing different masks. Once better established with CPAP therapy, will send for overnight oximetry to ensure resolution of nocturnal hypoxemia. All questions were answered and patient is in agreement of plan. Will follow up in 3 months or sooner if needed. Coding Level of Care Code Est Pt Level 4 (87616) Diagnoses Severe obstructive sleep apnea G47.33 Nocturnal hypoxemia G47.34
[2024-12-17 11:15] VITALS: BP 168/76; PULSE 63; O2SAT 97; BMI 44.8
--- OUTSIDE RECORDS SUMMARY | 2024-12-17 12:30 | XMS_ITS | Patient Health Record ---
Author Organization Andrew Connelly III, MD Address [address] [address] Care Team Providers Care Spine Nurse Name Role Phone Andrew Connelly Primary Care Provider Allergies Allergen (clinical drug ingredient) Drug/Non Drug Allergy documented on EMR Reaction Allergy Type Onset Date Status No Known Drug Allergy Unknown Drug Allergy Active Results Component Value Reference Range Notes Lipid Panel Reviewed date:07/01/2024 09:46:43 AM Interpretation: Performing Lab:[address] [address] Notes/Report: Triglycerides 190 <150 mg/dL Desirable Triglyceride: [...] Total Reviewed date:07/01/2024 09:46:43 AM Interpretation: Performing Lab:[facility], [address] [place] [address] Notes/Report: Testosterone, Total [phone] ng/dL For additional information, please refer to http://education.Qoopl/ faq/ TotalTestosteroneLC [email or web address] (This link is being provided for informational/ educational purposes only.) This test was developed and its analytical performance characteristics have been determined by [facility] [place], [place]. It has not been cleared or approved by the U.S. Food and Drug Administration. This assay has been validated pursuant to the CLIA regulations and is used for clinical purposes. THIS TEST WAS PERFORMED AT: [employer]/[facility] [id number] [place] [address] LUCA BRUNER MD,PHD Complete Blood Count Auto Di ff Reviewed date:07/01/2024 09:46:43 AM Interpretation: Performing Lab:[facility], [address] [place] [address] Notes/Report: White Blood Count 4.9 4.8-10.8 X10*3/uL [...] NRBC Abs Auto 0.000 0.0-0.012 X10*3/uL Comprehensive [place]. Panel Fa st Reviewed date:07/01/2024 09:46:43 AM Interpretation: Performing Lab:[facility], [address] [place] [address] Notes/Report: Sodium 141 135-145 mmol/L Potassium 4.3 3.3-5.1 mmol/L Chloride 105 96-108 mmol/L Carbon Dioxide 29 22-29 mmol/L Anion Gap 11 12-20 Blood Urea Nitrogen 10 9-16 mg/dL Creatinine 0.82 0.5-1.4 mg/dL Estimated Glomerular Filt Rate > 60 NOTE: For -Grenadian individuals, multiply the result by 1.210. 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[employer]: [place] [address] Ultrasound Report Signed Patient: John Felton MR#: [id number] : 1970 Acct:[id number] Age/Sex: 53 / M ADM Date: 10/18/24 Loc: .ED Attending Dr: Ordering Physician: Annabelle Yañez CNP Date of Service: 10/18/24 Procedure(s): US tania ous duplex LE RT Accession Number(s): [id number] cc: Annabelle Yañez CNP; Andrew Connelly MD [...] in OV> 10/18/241514 DD/ 1514 TD/TT: 10/18/241513 Supervisor [employer]: [facility] lumbar spine 2-3V Reviewed date:10/19/2024 08:33:06 PM Interpretation: Performing Lab: Notes/Report: [address] [address] XRay Report Signed Patient: John Felton MR#: [id number] : 1970 Acct:[id number] Age/Sex: 53 / M ADM Date: 10/18/24 Loc: HO.ED Attending Dr: Ordering Physician: Bailey Michel NP Date of Service: 10/18/24 Procedure(s): XR lumbar spine 2-3V Accession Number(s): [id number] cc: Andrew Connelly MD; Bailey Michel NP [...] 10/18/24 1546 DD/ 1545 TD/TT: 10/18/24 1545 Super[employer]: [address] [address] XRay Report Signed Patient: John Felton MR#: [id number] : 1970 Acct:[id number] Age/Sex: 53 / M ADM Date: 10/18/24 Loc: HO.ED Attending Dr: Ordering Physician: Bailey Michel NP Date of Service: 10/18/24 Procedure(s): XR lum bar spine 2-3V Accession Number(s): [id number] cc: Andrew Connelly MD; Bailey Michel NP [...] Power MD Signed By: <Electronically signed by eLnore Power MD in OV> 10/18/24 1546 DD/ 154 TD/TT: 10/18/24 1545 Super[employer]: MR lumbar spine wo con Reviewed date:11/15/2024 08:51:47 AM Interpretation: Performing Lab: Notes/Report: [address] [address] Magnetic Resonance Report Signed Patient: John Felton MR#: [id number] : 1970 Acct:[id number] Age/Sex: 53 / M ADM Date: 11/06/24 Loc: HO.MRI Attending Dr: Andrew Connelly MD Ordering Physician: Andrew Connelly MD Date of Service: 11/06/24 Procedure(s): MR lumbar spine wo con Accession Number(s): [id number] cc: Andrew Connelly MD Workstation: [email or web address] EXAMINATION: MR LUMBAR SPINE WITHOUT IV CONTRAST [...] OV> 11/07/24 0756 DD/ 17 TD/TT: 11/06/241836 Supervisor [employer]: [place] [address] Magnetic Resonance Report Signed Patient: John Felton MR#: [id number] : 1970 Acct:[id number] Age/Sex: 53 / M ADM Date: 11/06/24 Loc: HO.MRI Attending Dr: Andrew Connelly MD Ordering Physician: Andrew Connelly MD Date of Service: 11/06/24 Procedure(s): MR lum bar spine wo con Accession Number(s): [id number] cc: Andrew Connelly MD EXAMINATION: MR LUMB [...] 11/07/24 0756 DD/ 1818 TD/TT: 11/06/24 1837 Super[employer]: XR chest 2V (Not yet reviewe d by provider) Interpretation: Performing Lab: Notes/Report: [address] [address] XRay Report Signed Patient: John Felton MR#: [id number] : 1970 Acct:[id number] Age/Sex: 54 / M ADM Date: 11/28/24 Loc: HO.LAB Attending Dr: Andrew Connelly MD Ordering Physician: Andrew Connelly MD Date of Service: 11/28/24 Procedure(s): XR chest 2V Accession Number(s): [id number] cc: Andrew Connelly MD EXAMINATION: XR CHEST [...] Bertrand MD Signed By: <Electronically signed by Guteirrez Tomlin MD in OV> 11/28/24 1040 DD/ 1024 TD/TT: 11/28/24 1037 Supervisor [employer]: [place] [address] XRay Report Signed Patient: John Felton MR#: [id number] : 1970 Acct:[id number] Age/Sex: 54 / M ADM Date: 11/28/24 Loc: HO.LAB Attending Dr: Andrew Connelly MD Ordering Physician: Andrew Connelly MD Date of Service: 11/28/24 Procedure(s): XR chest 2V Accession Number(s): [id number] cc: Andrew Connelly MD EXAMINATION: XR CHEST [...] 11/28/24 1040 DD/ 1024 TD/TT: 11/28/24 1037 Supervisor [employer]: Reason For Referral Reason Evaluate and Treat N eeds Sleep Study Questioning Sleep Apnea Diagnosis 1 Sleep apnea, unspeci fied sleep apnea type (G47.30) Referral Organization Andrew Connelly III, MD Referring Provider First Name Andrew Referring Provider Last Name Maricel Referring Provider Speciality Internal M edicine Referred Provider [facility], Pulmonology Referred Provider Specialty Pulmonary Avani cox General Notes Ranger,Amber 2023 09:38:45 AM EDT > Referral faxed with progress note, Ranger,Amber 03/27/2024 09:21:42 AM EDT > Pulmonary office faxed over letter stating they tried to contact patient 3 times, , aYel Marshall 03/27/2024 02:33:55 PM EDT > Patient [...] Orally three times a day 10/24/2024 Active Immunizations Vaccine Route Administration Date Status [...] Problem Status W/U Status Risk Notes Problem [id number] 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 Surgical scar is healing. He is able to ambulate without difficulty. 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 The surgical scar is well-healed and ambulates without difficulty. Problem Benign prostatic hyperplasia (404325296) BPH (benign prostatic hyperplasia) (N40.0) Active confirmed He rises from sleep once or twice a night. We have discussed several modifications in his lifestyle we could make to reduce this. Problem 98376702 Essential hypertension (I10) Active confirmed His blood pressure today has beenstable at the upper limit of normal. I recommend aggressive weight reduction and aggressive sodium restriction. No change in his regimen was made.He was given an appointment to come to the office to measure his pressure in the near future. Problem 74309240 Sciatica, unspecified laterality (M54.30) Active confirmed He continues to have back pain radiating down his leg. He was continued on current medication. He may need physical therapy and rehabilitation consultation. An MRI is being planned. Problem Sleep apnea (12873230) Sleep apnea, unspecified sleep apnea type (G47.30) Active confirmed He continues t o use his CPAP machine with good effect. Problem [id number] Carpal tunnel syndrome of left wrist (G56.02) Active confirmed He has undergone surgery for carpal tunnel syndrome with excellent results. Wound is healing will return to work. Problem Hyperlipidaemia (09778784) Hyperlipidemia, unspecified hyperlipidemia type (E78.5) Active confirmed He was instructed to resume his simvastatin to be taken with evening meal. Problem 134433014 History of umbilical hernia (Z87.19) Active confirmed The scar is well-healed in the hernia has been repaired. Problem 717798784 Morbid obesity (E66.01) Active confirmed He has lost 3 pounds despite going on a cruise recently. II have discontinued the Zepbound at the current dose and we'll see him back in 4 weeks. Problem [id number] Sciatica of right side (M54.31) Active confirmed Low back pain has resolved. He continues to have improving sciatica down the right leg. The MRI showed only mild degenerative changes with no surgical problem. Problem 298259342 Type 2 diabetes mellitus without complication, without long-term current use of insulin (E11.9) Active confirmed Comprehensiv e blood work with her hemoglobin A1c has been ordered. No change in his regimen was made today. Problem Chronic cough (22976267) Chronic cough (R05.3) Active confirmed He continues to have a nonproductive cough night and day after a recent upper respiratory infection with bronchitis. I have ordered a chest x-ray for him. Vital Signs Heart Rate 72 /min 11/28/2024 Temperature 98.4 degrees Fahrenheit 11/28/2024 Blood pressure diastolic 77 mm Hg 11/28/2024 Height 70 in 11/28/2024 Blood pressure systolic 140 mm Hg 11/28/2024 Weight 318 lbs 11/28/2024 BMI 45.62 kg/m2 11/28/2024 Encounters Encounter Location Date Provider Diagnosis Andrew Connelly III, MD [address] [place] [address] [place] [phone] 03/21/2024 Andrew Connelly Morbid obesity E66.0 1 ; Hyperlipidemia, unspecified hyperlipidemia type E78.5 ; BPH (benign prostatic hyperplasia) N40.0 and Shortness of breath R06.02 Andrew Connelly III, MD [address] [place] [address] [place] [phone] 07/01/2024 Andrew Connelly Morbid obesity E66.0 1 ; Hyperlipidemia, unspecified hyperlipidemia type E78.5 ; BPH (benign prostatic hyperplasia) N40.0 and Essential hypertension I10 Andrew Connelly III, MD [address] [place] [address] [place] [address] 09/05/2024 Andrew Connelly Hyperlipidemia, unspecified hyperlipidemia type E78.5 ; Essential hypertension I10 ; History of umbilical hernia Z87.19 ; Morbid obesity E66.01 ; BPH (benign prostatic hyperplasia) N40.0 ; Type 2 diabetes mellitus without complication, without long-term current use of insulin E11.9 ; Sleep apnea, unspecified sleep apnea type G47.30 and Viral syndrome B34.9 Andrew Connelly III, MD [address] [place] [address] [place] [address] 09/24/2024 Andrew Connelly Morbid obesity E66.0 1 ; Sleep apnea, unspecified sleep apnea type G47.30 ; BPH (benign prostatic hyperplasia) N40.0 ; Essential hypertension I10 ; Type 2 diabetes mellitus without complication, without long-term current use of insulin E11.9 and Viral syndrome B34.9 Andrew Connelly III, MD [address] [place] [address] [place] [address] 10/24/2024 Andrew Connelly Morbid obesity E66.0 1 ; Right groin pain R10.31 ; Essential hypertension I10 ; History of umbilical hernia Z87.19 ; Idiopathic aseptic necrosis of right femur M87.051 ; Idiopathic aseptic necrosis of left femur M87.052 ; BPH (benign prostatic hyperplasia) N40.0 and Type 2 diabetes mellitus without complication, without long-term current use of insulin E11.9 Andrew Connelly III, MD [address] [place] [address] [place] [address] 10/27/2024 Andrew Connelly Morbid obesity E66.0 1 ; Sciatica, unspecified laterality M54.30 ; Essential hypertension I10 ; Hyperlipidemia, unspecified hyperlipidemia type E78.5 ; History of umbilical hernia Z87.19 ; Idiopathic aseptic necrosis of right femur M87.051 ; Idiopathic aseptic necrosis of left femur M87.052 and BPH (benign prostatic hyperplasia) N40.0 Andrew Connelly III, MD [address] [place] [address] [place] [address] 11/12/2024 Andrew Connelly Morbid obesity E66.0 1 ; Hyperlipidemia, unspecified hyperlipidemia type E78.5 ; Essential hypertension I10 ; BPH (benign prostatic hyperplasia) N40.0 ; Type 2 diabetes mellitus without complication, without long-term current use of insulin E11.9 ; Sleep apnea, unspecified sleep apnea type G47.30 and Sciatica of right side M54.31 Andrew Connelly III, MD [address] [place] [address] [place] [address] 11/28/2024 Andrew Connelly Morbid obesity E66.0 1 ; Chronic cough R05.3 ; Hyperlipidemia, unspecified hyperlipidemia type E78.5 ; BPH (benign prostatic hyperplasia) N40.0 and Essential hypertension I10 Andrew Connelly III, MD [address] [place] [address] [place] [address] 03/24/2024 Andrew Connelly III, MD [address] [place] [address] [place] [address] 04/24/2024 Andrew Connelly Morbid obesity E66.0 1 ; Essential hypertension I10 ; Type 2 diabetes mellitus without complication, without long-term current use of insulin E11.9 and Hypogonadism male E29.1 Andrew Connelly III, MD [address] [place] [address] [place] [address] 09/25/2024 Andrew Connelly III, MD [address] [place] [address] [place] [address] 09/29/2024 Andrew Connelly III, MD [address] [place] [address] [place] [address] 10/15/2024 Andrew Connelly III, MD [address] [place] [address] [place] [address] 10/20/2024 Andrew Connelly III, MD [address] [place] [address] [place] [address] 10/21/2024 Andrew Connelly III, MD [address] [place] [address] [place] [address] 10/21/2024 Andrew Connelly III, MD [address] [place] [address] [place] [address] 10/28/2024 Andrew Connelly III, MD [address] [place] [address] [place] [address] 11/24/2024 Andrew Connelly III, MD [address] [place] [address] [place] [address] 11/25/2024 Andrew Connelly III, MD [address] [place] [address] [place] [address] 11/25/2024 Andrew Connelly Assessments Encounter Date Diagnosis (ICD Code) Assessment Notes T reatment Notes Treatment Clinical Notes 03/21/2024 Hyperlipidemia, unspecified hyperlipidemia type (ICD-10 - [...] his weight loss strategy in detail. 11/28/2024 Morbid obesity (ICD-10 - E66.01) He has lost 3 pounds despite going on a cruise recently. II have discontinued the Zepbound at the current dose and we'll see him back in 4 weeks. 11/28/2024 Chronic cough (ICD-10 - R05.3) He continues to have a nonproductive cough night and day after a recent upper respiratory infection with bronchitis. I have ordered a chest x-ray for him. 04/24/2024 Morbid obesity (ICD-10 - E66.01) 03/21/2024 BPH (benign prostatic hyperplasia) (ICD-10 - [...] measure his pressure in the near future. 11/28/2024 Hyperlipidemia, unspecified hyperlipidemia type (ICD-10 - E78.5) He was instructed to resume his simvastatin to be taken with evening meal. 04/24/2024 Essential hypertension (ICD-10 - I10) 03/21/2024 [...] lifestyle we could make to reduce this. 11/28/2024 BPH (benign prostatic hyperplasia) (ICD-10 - N40.0) [...] change in his regimen was made today. 11/28/2024 Essential hypertension (ICD-10 - I10) His blood pressure today has beenstable at the upper limit of normal. I recommend aggressive weight reduction and aggressive sodium restriction. No change in his regimen was made.He was given an appointment to come to the office to measure his pressure in the near future. 04/24/2024 Hypogonadism male (ICD-10 - E29.1) 09/05/2024 [...] 06/07/2021 PSA, TOTAL 06/01/2020 CBC w DIFF 05/05/2019 CBC w DIFF 06/18/2018 CBC w DIFF 06/07/2021 CBC w DIFF 04/24/2024 CBC w DIFF 02/22/2018 CBC w DIFF 06/01/2020 MRI LUMBAR SPINE NO CONTRAST 10/27/2024 XR CHEST 2 VIEW PA & LAT 11/28/2024 CBC WITH AUTO DIFF 03/21/2024 SARS COV2 RNA RT PCR 05/03/2021 Lipid Panel 03/21/2024 Lipid Panel 06/07/2021 XR chest 4 views 03/21/2024 XR chest 2V 11/28/2024 Hemoglobin A1c 03/21/2024 Next Appt Details Provider Name:Andrew Connelly, 12/26/2024 04:30:00 PM, [address] [place] [address] [address], [place], [phone], Provider Name:Andrew Connelly, 03/24/2025 02:00:00 PM, [address] [place] [address] [address], [place], [address], Insurance Providers Payer Name Payer Address Payer Phone Subscriber Number Group Number Insured Name Patient Relationship to Insured Coverage Start Date Coverage End Date [employer] [address] [employer] [place] [phone] [id number] JOHN FELTON Self - patient is the insured Medical (General) History Medical History History ICD Code Hypertension, unspecified type I10 Hyperlipidemia, unspecified hyperlipidem ia type E78.5 obesity aseptic necrosis of the hips history of umbilical hernia Surgical History Surgery Date(Month/Year) No history Colonoscopy, [facility], Dr. Ruvalcaba 07/2020 right hip replacement 07/14/2008 left hip replacement 07/10/2008 aseptic necrosis of right and left hip 0 03/2000 umbilical repair 2007 Hospitalization History Reason Date(Month/Year) No history multiple orthopedic procedures
--- OUTSIDE RECORDS SUMMARY | 2024-12-17 12:30 | XMS_ITS ---
Author Organization Andrew Connelly III, MD Address [address] [address] Care Team Providers Care Environmental Compliance Manager Name Role Phone nAdrew Connelly Primary Care Provider Allergies Allergen (clinical drug ingredient) Drug/Non Drug Allergy documented on EMR Reaction Allergy Type Onset Date Status No Known Drug Allergy Unknown Drug Allergy Active REASON FOR VISIT Chronic low back pain radiating down right leg, Hypertension, Morbid obesity, Benign prostatic hypertrophy, Sleep apnea, Diabetes, Zepbound weight loss program Medications Medication SIG (Take, Route, Frequency, Duration) [...] nonsmoker Additional Findings: Tobacco Non-User Aggressive non-smoker Problems Problem Type SNOMED Code ICD Code Onset Dates Problem Status W/U Status Risk Notes Problem Chronic cough (62089326) Chronic cough (R05.3) Active confirmed He continues to have a nonproductive cough night and day after a recent upper respiratory infection with bronchitis. I have ordered a chest x-ray for him. Vital Signs Temperature 98.4 degrees Fahrenheit 11/29/19 25 Blood pressure systolic 140 mm Hg 11/29/19 25 Blood pressure diastolic 77 mm Hg 025 Heart Rate 72 /min 11/28/2024 Height 70 in 11/28/2024 Weight 318 lbs 11/28/2024 BMI 45.62 kg/m2 11/28/2024 Encounters Encounter Location Date Provider Diagnosis Andrew Connelly III, MD [address] [place] [address] [place] [id number] 11/28/2024 Andrew Connelly Morbid obesity E66.0 1 ; Chronic cough R05.3 ; Hyperlipidemia, unspecified hyperlipidemia type E78.5 ; BPH (benign prostatic hyperplasia) N40.0 and Essential hypertension I10 Assessments Encounter Date Diagnosis (ICD Code) Assessment Notes Treat ment Notes Treatment Clinical Notes 11/28/2024 Morbid obesity (ICD-10 - E66.01) He has lost 3 pounds despite going on a cruise recently. II have discontinued the Zepbound at the current dose and we'll see him back in 4 weeks. 11/28/2024 Chronic cough (ICD-1 0 - R05.3) He continues to have a nonproductive cough night and day after a recent upper respiratory infection with bronchitis. I have ordered a chest x-ray for him. 11/28/2024 Hyperlipidemia, unspecified hyperlipidemia type (ICD-10 - E78.5) He was instructed to resume his simvastatin to be taken with evening meal. 11/28/2024 BPH (benign prostati c hyperplasia) (ICD-10 - N40.0) He rises from sleep once or twice a night. We have discussed several modifications in his lifestyle we could make to reduce this. 11/28/2024 Essential hypertension (ICD-10 - I10) His blood pressure today has beenstable at the upper limit of normal. I recommend aggressive weight reduction and aggressive sodium restriction. No change in his regimen was made.He was given an appointment to come to the office to measure his pressure in the near future. Plan Of Treatment Medication Medication Name Sig [...] Telehealth Provider Name:Andrew Connelly, 12/26/2024 04:30:00 PM, [address] [place] [address] [address], [place], [phone], Provider Name:Andrew Connelly, 03/24/2025 02:00:00 PM, [address] [place] [address] [address], [place], [phone], Progress Notes * PHONG KNIGHTDOB:1970 ( 54 yo M)Acc No.[id number]:11/28/2024 Progress Notes Patient:PHONG NELSON Provider:?Andrew Connelly MD :1970???Age:54 Y???Sex:Male Luke e:11/28/2024 Address: [address], [id number] Subjective: * Chief Complaints: * ???Chronic low back pain rad iating down right legHypertensionMorbid obesityBenign prostatic hypertrophySleep apneaDiabetesZepbound weight loss program * HPI: ???COVID-19 Screening:?He has been successful in having insurance coverage for Zepbound and is now taking 5 mg weekly by injection.? He has lost 3 pounds so far.? He is highly motivated to continue losing weight.? ?He was treated recently with amoxicillin for a productive cough and bronchitis.? He has developed severe pain in his lower back to radiates down his right leg to his knee.? He is going to rest over the weekend and avoid exertion.? He will call me after the weekend and report on the status of his back.? He is concerned about his lingering cough.? A chest x-ray was ordered for him. ?Questions?Have you had any new onset fever, chills, cough, congestion, sore throat, shortness of breath, muscle aches??No * ROS:?General/Constitutional:?pain?Low back down right leg.?Chills?denies.?Fatigue?admits.?Fever?denies.?ENT:?Decreased hearing?denies.?Respiratory:?Cough?worse at night.?Cardiovascular:?Chest pain with exertion?denies.?Dyspnea on exertion?denies.?Shortness of breath?with exertion.?Gastrointestinal:?Constipation?occasional.?Decreased appetite?denies.?Diarrhea?denies.?Heartburn?denies.?Nausea?denies.?Rectal bleeding?denies.?Vomiting?denies.?Hematology:?bruising?denies.?petechiae?denies.?Swollen glands?none have been noted.?Genitourinary:?Frequent urination?once a night.?Musculoskeletal:?Muscle aches?denies.?Painful joints?denies.?Sciatica?denies.?Weakness?denies.?Skin:?Itching?denies.?Rash?denies.?Skin lesion(s)?denies.?Neurologic:?Difficulty speaking?denies.?Dizziness?denies.?Headache?denies.?Low back pain?that is chronic.?Psychiatric:?Depressed mood?denies.? * Medical History:? * Surgical History:?umbilical repair 2008aseptic necrosis of right and left hip 03/2000left hip replacement 07/10/2008right hip replacement 07/14/2008Colonoscopy, [facility], Dr. Ruvalcaba 07/2020No history * Hospitalization/Major [...] Tobacco Non-User?Aggressive non-smoker ???He was born in [place]. 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 He is to for He has a son Phong. He works 60 hours a week. * Medications:?TakingGabapenti n 100 MG Capsule 1 capsule at bedtime Orally three times a day dexAMETHasone 2 MG Tablet 1 tablet Orally every 12 hrs Zepbound 5 MG/0.5ML Solution Auto-injector 0.5 mL Subcutaneous once a week , stop date 01/24/2025Metoprolol Tartrate 50 mg Tablet TAKE 1 TABLET TWICE A DAY po twice a day Medication List reviewed and reconciled with the patientTaking Gabapentin 100 MG Capsule 1 capsule at bedtime Orally three times a day Taking dexAMETHasone 2 MG Tablet 1 tablet Orally every 12 hrs Taking Zepbound 5 MG/0.5ML Solution Auto- injector 0.5 mL Subcutaneous once a week , stop date 01/24/2025Taking Metoprolol Tartrate 50 mg Tablet TAKE 1 TABLET TWICE A DAY po twice a day Medication List reviewed and reconciled with the patient * Allergies:?No Known Drug All ergyno[Allergies Verified] Objective: * Vitals:?Ht: 70, Wt: 318, BMI :45.62, BP: 140/77, HR: 72, Temp: 98.4, Ht-cm: 177.8, Wt-k.24. * Examination: ???General Examination: ?GENERAL APPEARANCE:?pleasant, well nourished, well developed, in no acute distress, calm and relaxed, morbidly obese, man.?HEAD:?atraumatic, normocephalic.?EYES:?eomi, perrla, anicteric, conjugate.?EARS:?normal.?NOSE:?septum intact.?ORAL CAVITY:?normal, unremarkable.?NECK/THYROID:?no jugular venous distention, no carotid bruit, thyroid normal.?LYMPH NODES:?no enlarged lymph nodes,spleen normal.?SKIN:?no suspicious lesions, anicteric.?HEART:?no clicks, gallops, murmurs, or rubs, regular rhythm, S1, S2 normal, no s3, or vascular bruits.?LUNGS:?clear to auscultation .?BREASTS:??no masses palpable bilaterally.?ABDOMEN:?bowel sounds normal, no ascites, no organomegaly, no mass, morbid obesity.?RECTAL EXAM:?not examined.?MUSCULOSKELETAL:?extremities unremarkable, no clubbing, cyanosis or edema, Unremarkable wrists.?PERIPHERAL PULSES:?normal.?NEUROLOGIC:?alert and oriented, cranial nerves 2-12 grossly intact, deep tendon reflexes 2+ symmetrical, motor strength normal upper and lower extremities, sensory exam intact.?PSYCH:?alert, oriented, cognitive function intact, good eye contact, speech clear, thought process logical, goal directed.? Assessment: * Assessment: 1.?Morbid obesity - E66.01 ( Primary)???Notes :He has lost 3 pounds despite going on a cruise recently.? II have discontinued the Zepbound at the current dose and we'll see him back in 4 weeks.???2.?Chronic cough - R05.3???Notes :He continues to have a nonproductive cough night and day after a recent upper respiratory infection with bronchitis.? I have ordered a chest x-ray for him.???3.?Hyperlipidemia, unspecified hyperlipidemia type - E78.5???Notes :He was instructed to resume his simvastatin to be taken with evening meal.???4.?BPH (benign prostatic hyperplasia) - N40.0???Notes :He rises from sleep once or twice a night. We have discussed several modifications in his lifestyle we could make to reduce this.???5.?Essential hypertension - I10???Notes :His blood pressure today has beenstable at the upper limit of normal. I recommend aggressive weight reduction and aggressive sodium restriction. No change in his regimen was made.He was given an appointment to come to the office to measure his pressure in the near future.??? Plan: * Treatment: 2.?Chronic cough?Imaging: XR CHEST 2 VIEW PA & LAT 3.?Others? Continue Metoprolol Tartrate Tablet, 50 mg, TAKE 1 TABLET TWICE A DAY, po, twice a day;?Continue Zepbound Solution Auto-injector, 5 MG/0.5ML, 0.5 mL, Subcutaneous, once a week.?? * Procedure Codes:? * Preventive Medicine:? ??Counseling:?Care [...] to manage diabetes without too much effort.?Treatment Goals?HbA1C < 7.0, Blood Sugars less than < 115.?Barriers?no barriers.?Self-Managment Goals?Work on weight loss, with a goal of losing 1 lb per week, Increase exercise to 3 times a week for 30 mins, Stop drinking juice and/or soda, replace with more water.? * Follow Up:?4 Weeks (Reason: Telehealth) * Images: * Sign off status: Completed true * Provider:?Andrew Connelly MD Date:?08/2024 Generated for Lizzy ye/Daisy/eTransmitting on:?12/17/2024 12:29 PM EDT History and Physical Notes * HPI (History of Present Illness) Category Sub-Category Detail Notes COVID-19 Screening Questions Have you had any new onset fever, chills, cough, congestion, sore throat, shortness of breath, muscle aches?: No Examination Category Sub-Category Detail Notes General Examination GENERAL APPEARANCE: pleasant , well nourished, well developed, in no acute distress, calm and relaxed, morbidly obese, man HEAD: atraumatic, normocep halic EYES: eomi, perrla, anicte corby, conjugate EARS: normal NOSE: septum intact NECK/THYROID: no jugular venous di stention, no carotid bruit, thyroid normal HEART: no clicks, gallops, murmurs, or rubs, regular rhythm, S1, S2 normal, no s3, or vascular bruits LUNGS: clear to auscultatio n ABDOMEN: bowel sounds normal, no ascites, no organomegaly, no mass, morbid obesity NEUROLOGIC: alert and oriented, cranial nerves 2-12 grossly intact, deep tendon reflexes 2+ symmetrical, motor strength normal upper and lower extremities, sensory exam intact SKIN: no suspicious lesion s, anicteric PERIPHERAL PULSES: normal BREASTS: no masses palpable b ilaterally MUSCULOSKELETAL: extremities unremark able, no clubbing, cyanosis or edema, Unremarkable wrists LYMPH NODES: no enlarged lymph no lenny,spleen normal RECTAL EXAM: not examined PSYCH: alert, oriented, cog nitive function intact, good eye contact, speech clear, thought process logical, goal directed ORAL CAVITY: normal, unremarkable
--- OUTSIDE RECORDS SUMMARY | 2024-12-17 12:30 | XMS_ITS ---
Author Organization Andrew Connelly III, MD Address [address] [place] [address] Care Team Providers Care Clerical Specialist Name Role Phone Andrew Connelly Primary Care Provider REASON FOR VISIT Message Social History Sex Assigned At : Social History Observation Description Sex Assigned At Male Encounters Encounter Location Date Provider Diagnosis Andrew Connelly III, MD [address] [place] [address] [place] [phone] 11/25/2024 Andrew Connelly Plan Of Treatment Next Appt Details Provider Name:Andrew Connelly, 12/26/2024 04:30:00 PM, [address] [place] [address] [place], [phone], Provider Name:Andrew Connelly, 03/24/2025 02:00:00 PM, [address] [place] [address] [place], [address], Progress Notes * JOSE FRANCISCOJOHN WallaceDOB:1970 ( 54 yo M)Acc No.[id number]:11/25/2024 Patient:?JOHN KNIGHT :1970???Age:54 Y???Sex:Male Address:[address] [place], [address] * true * Date:? Generated for Printi ng/Faxing/eTransmitting on:?12/17/2024 12:29 PM EDT
--- OUTSIDE RECORDS SUMMARY | 2024-12-17 12:30 | XMS_ITS | Patient Health Record ---
Author Organization [facility] Address [address] [place] [address] Care Team Providers Care Parts Counterperson Name Role Phone Andrew Connelly MD Primary [...] Problem Status W/U Status Risk Notes Problem [id number] Colon cancer screening (Z12.11) Active confirmed Problem 151815140 Encounter for other preprocedural examination (Z01.818) Active confirmed Plan Of Treatment Future Test Test Name Order Date COLONOSCOPY 07/16/2020 Insurance Providers Payer Name Payer Address Payer Phone Subscriber Number Group Number Insured Name Patient Relationship to Insured Coverage Start Date Coverage End Date [facility] [address] [place], [place] [phone] [id number] JOHN KNIGHT Self - patient is the insured Medical (General) History Medical History History ICD Code hypertension elevated cholesterol Surgical History Surgery Date(Month/Year) bilateral hip resurfacing 2006 Hospitalization History Reason Date(Month/Year)
--- OUTSIDE RECORDS SUMMARY | 2024-12-17 12:30 | XMS_ITS | Clinical Summary ---
Author Organization [facility] Address [address] [place] [address] Care Team Providers Care Direct Chill Casting Operator Name Role Phone Unavailable Primary Care Provider [...] Recombinant (2 of 2) 06/15/2020 04/20/20 20 Bml-SISBI-33 (2023- season) 2024 021, 11/03/2020 Imm-Influenza (#1) 2024 04/20/2020 Alcohol and Drug Screen 07/30/2024 Depression Annual Screen 07/30/2024 Insurance [facility] ([facility]) Member Subscriber Plan / Payer (Ef fective 2020-Present) Name:Phong Felton Relation to Subscriber:Self Name:Phong Felton Payer ID:[id number] Type:Indemnity Address: [address] [place] [address]
--- OUTSIDE RECORDS SUMMARY | 2024-12-17 12:31 | XMS_ITS ---
Author Organization Andrew Connelly III, MD Address [address] [address] Care Team Providers Care Parking Lot Attendant And Cashier Name Role Phone Andrew Connelly Primary Care [...] Date Provider Diagnosis Andrew Connelly III, MD [address] [place] [address] [place] [phone] 11/25/2024 Andrew Connelly Plan Of Treatment Medication Medication Name Sig Start Date Stop Date Notes Metoprolol Tartrate 50 mg TAKE 1 TABLET TWICE A DAY po twice a day for 90 days Next Appt Details Provider Name:Andrew Connelly, 12/26/2024 04:30:00 PM, [address] [place] [address] [place], [address], Provider Name:Andrew Connelly, 03/24/2025 02:00:00 PM, [address] [place] [address] [place], [address], Progress Notes * EUGENE JOHNDOB:1970 ( 54 yo M)Acc No.[id number]:11/25/2024 Patient:?EUGENEJOHN Acevedo :1970???Age:54 Y???Sex:Male Address: [address], [place], [place], [address] * Refills? Refill Metoprolol Tartrate Tablet, 50 mg, po, 180, TAKE 1 TABLET TWICE A DAY, twice a day, 90 days, Refills=3 * true * Date:? Generated for Lizzy ye/Daisy/eTsilvinasmitting on:?12/17/2024 12:30 PM EDT
--- OUTSIDE RECORDS SUMMARY | 2024-12-17 12:31 | XMS_ITS | Patient Health Record ---
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 Problem 932849394 Interdigital neuroma of right foot (G57.81) Active confirmed Plan Of Treatment Pending Test Test Name Order Date X ray : Foot, left 3V 09/03/2020 X ray : Foot, right 3V 09/03/2020 Insurance Providers Payer Name Payer Address Payer Phone Subscriber Number Group Number Insured Name Patient Relationship to Insured Coverage Start Date Coverage End Date Amber [address] [place] [phone] [id number] Phong Felton Self - patient is the insured Medical (General) History Medical History History ICD Code Arthritis Chicken pox High blood pressure Joint implants/screws Transfusions Surgical History Surgery Date(Month/Year) Bilateral hip resurfacing 07/10/2008
--- OUTSIDE RECORDS SUMMARY | 2024-12-17 12:31 | XMS_ITS | Clinical Summary ---
Author Organization [facility] Address [address] [place] [address] Care Team Providers Care Automotive Detailer Name Role Phone Unavailable Primary Care Provider [...]
== END 2024-12-17 12:18 | disposition home or self-care (01) ==
LOC: HO.HPSW 11:12
PROVIDERS: PCP Internal Medicine Medical Oncology; Visit Provider Nurse Practitioner Family
DX: G47.33 Obstructive sleep apnea (adult) (pediatric) (principal); G47.34 Idiopathic sleep related nonobstructive alveolar hypoventilation
CPT/HCPCS: 99214